=== PATIENT | male | born 1985 | race Asian ===

== ENCOUNTER 2017-05-07 12:37 | Day surgery (SDC) | payer OTHER ==
--- NOTE | 2017-04-29 00:25 | HP ---
CC: Romeo More MD, [facility] * HISTORY AND PHYSICAL: DATE OF ADMISSION: 05/07/17 ATTENDING SURGEON: Alec Reyes MD * (TARIK Márquez, dictating). CHIEF COMPLAINT: Anal fistula. HISTORY OF PRESENT ILLNESS: This is a 31-year-old male, who for the past 3-1/2 years has been experiencing ongoing perianal drainage. He states that he initially had pain in the perianal area with spontaneous drainage at that time. It appeared that things had healed for an initial period of months, but then subsequently he has had ongoing drainage on a pretty much daily basis. He describes intermittent mild discomfort but nothing severe. He has occasional constipation generally related to milk or dairy products. This is sometimes associated with small amounts of bleeding. There is no personal or family history of inflammatory bowel disease. He was seen in the office by Dr. Reyes on 04/17/17, at which time exam showed two openings at the 10 and 2 o'clock positions with the patient in a prone position. Dr. Reyes was unable to completely probe either the fistula openings because of discomfort and there were no obvious openings internally on anoscopy. Dr. Reyes's impression was that of anal fistula and his recommendation was for examination under anesthesia , fistulotomy with possible seton placement. The patient understands the indications for surgery, the risks, benefits, and alternatives. He would like to proceed as scheduled with the examination under anesthesia with fistulotomy and possible seton placement. PAST MEDICAL HISTORY: 1. Bipolar disorder. 2. Anal fistula as noted above. PAST SURGICAL HISTORY: Reduction of a nasal fracture. CURRENT MEDICATIONS: 1. [place]ott carbonate extended release 450 mg 2 tablets q.p.m. 2. Seroquel 300 mg one half tablet q.p.m. DRUG ALLERGIES: None known. FAMILY HISTORY: Negative for anesthesia problems, bleeding or clotting disorders. SOCIAL HISTORY: The patient lives with his parents. He is not currently employed. He is a smoker, one-half pack per day, and we discussed the benefits of smoking cessation. He drinks alcohol rarely and denies other recreational drug use. REVIEW OF SYSTEMS: General: No recent constitutional symptoms or acute illnesses. His weight has been stable. HEENT: No problems reported. Cardiovascular: No chest pain, palpitations or history of heart murmur. Respiratory: No history of asthma, chronic cough or shortness of breath. GI: No upper GI symptoms. : No problems reported. Endocrine: No diabetes or thyroid dysfunction. Neuropsych: He is followed regularly by psychiatrist for management of his bipolar disorder. PHYSICAL EXAMINATION GENERAL: A well-nourished, well-developed male in no acute distress. VITAL SIGNS: Height 5 feet 7 inches, weight 188 pounds, BMI 29.4. Blood pressure 122/80, pulse 72, respirations 16. HEENT: Pupils equal, round, and reactive. EOMs intact. No conjunctival pallor. Oropharynx, teeth in good repair. No intraoral lesions. NECK: No lymphadenopathy, thyromegaly or masses. HEART: Regular rate and rhythm. No murmur noted. LUNGS: Clear to auscultation. No rales or wheezes. ABDOMEN: Soft, nontender to palpation. No palpable masses or organomegaly. GENITALIA AND RECTAL: Not done. See above per Dr. Reyes's exam. BACK: No spinous process or CVA tenderness. EXTREMITIES: No edema. NEUROLOGIC: Grossly intact. SKIN: Warm and dry. No suspicious rashes or lesions noted. IMPRESSION: Anal fistula. PLAN: Examination under anesthesia; fistulotomy with possible seton placement. TARIK MÁRQUEZ [id number]/[facility] #: [id number] MTDD
[~2017-05-07 12:37] MED LIST: Buffered Lidocaine 0.9% SYRIN* 5 ML/SYR SYRINGE INTRADERM ONE; Famotidine IV* 10 MG/ML 2 ML (20 mg) IV ONE
[2017-05-07] MEDS ORDERED: Famotidine IV* 10 MG/ML 2 ML (20 mg) ONE (12:42)
[2017-05-07] MEDS ORDERED: ceFOXitin 2 GM IVPREMIX* 2 GM/50 ML BAG ONE (12:42)
[2017-05-07] MEDS ORDERED: Buffered Lidocaine 0.9% SYRIN* 5 ML/SYR SYRINGE ONE (12:42)
[2017-05-07] MEDS ORDERED: Midazolam* 1 MG/ML 5 ML VIAL (5 MG) ONE (13:54)
[2017-05-07] MEDS ORDERED: Ketorolac INJ* 30 MG/ML 1 ML VIAL ONE (13:54)
[2017-05-07] MEDS ORDERED: Ondansetron INJ* 2 MG/ML VIAL ONE (13:54)
[2017-05-07] MEDS ORDERED: fentaNYL* 50 MCG/ML 2 ML VIAL (100 MCG VIAL) ONE (13:54)
[2017-05-07] MEDS ORDERED: Lidocaine 2% PF * 5 ML VIAL ONE (13:54)
[2017-05-07] MEDS ORDERED: Propofol* 10 MG/ML 20 ML BTL IV PUSH ONE (13:54)
[2017-05-07] MEDS ORDERED: oxyCODONE TAB* 5 MG TAB PO PRN (14:37)
[2017-05-07] MEDS ORDERED: DiMENhydriNATE IV* 50 MG/ML VIAL IV PUSH PRN (14:37)
[2017-05-07] MEDS ORDERED: HYDROmorphone INJ* 1 MG/ML CARPUJECT SYRINGE IV PRN (14:37)
[2017-05-07] MEDS ORDERED: Acetaminophen TAB* 325 MG PO PRN (14:37)
[2017-05-07] MEDS ORDERED: Methylene Blue 0.5 %* 50 MG/10 ML AMP IV ONE (15:26)
[2017-05-07] MEDS ORDERED: Bupivacaine 0.25% SDV* 30 ML ONE (15:26)
[2017-05-07] MEDS ORDERED: Gelfoam 12-7 ADSORBABL SPONGE* 1 EA SPONGE ONE (15:27)
[2017-05-07] MEDS ORDERED: Chloroprocaine 2%* 20 ML VIAL ONE (15:38)
--- NOTE | 2017-05-07 16:40 | SURGPN ---
Brief Operative Note - Surgery Procedures: Procedures Pre-OP Diagnoses: recurrent perianal abscesses, r/o fistula in ano Post-op Diagnosis: anal fistula complex, superficial Procedure: exam under anesthesia, fistulotomy Surgeon: Eric Asst: WILBUR Rose Anethesia: spinal, local Kl[place] EBL: minimal IVF: minimal Specimen: none Drains: none Complications: None
[2017-05-07 17:20] VITALS: BP 120/89
--- NOTE | 2017-06-05 06:11 | OP ---
CC: [facility] OPERATIVE REPORT: DATE OF OPERATION: 05/07/17 DATE OF : 87 SURGEON: Alec Reyes MD BANKRUPTCY ASSISTANT: Milton Cuevas ANESTHESIOLOGIST: Dr. Arana. ANESTHESIA: Spinal anesthesia. PRE-OP DIAGNOSIS: Recurrent perianal abscess, rule out fistula in ano. POST-OP DIAGNOSIS: Anal fistula complex superficial. OPERATIVE PROCEDURE: Exam under anesthesia and fistulotomy. BLOOD LOSS: Minimal. FLUIDS: Minimal crystalloid fluid given. SPECIMEN: None. DRAINS: None. DESCRIPTION OF PROCEDURE: The patient was identified in the preoperative area, case discussed, cons ent was signed, seen by the anesthesiologist, brought to the operating room. A spinal anesthesia wa s delivered. The patient was placed on the operative table in the prone position. He was then jim knife prone with buttock cheeks taped apart. The anus was then prepped with Betadine. The patient was draped and a time-out was performed. Examination of the perianal area revealed previously known openings that were thought to be likely f istulous, the one was at 11 o'clock, the other at 2 o'clock. We dilated the rectum with 3 fingers an d then placed an anal retractor in. Review of the dentate line showed some hyperemia along the post erior aspect, but we could not find a discrete opening. Next, we inserted methylene blue through th e 11 o'clock tract. This promptly exited at the 1 o'clock tract and we still could not appreciate d rainage into the anus. Again with peroxide attempt, we could see bubbling, but we are not too sure. Next, we used a probe, which probed easily from the 11 o'clock tract to the 1 o'clock tract. Afte r this was performed, I did incise over the 11 o'clock tract to get a more of an idea of the inner w orkings of this site. This allowed me to manipulate a probe more easily into the anus and it did co me out at the dentate line at the area of the hyperemic portion. This appeared superficial and I in cised over the probe and extended and then also put the probe from one fistula to the other and also incised over this. This created a sort of elliptical opening. Hemostasis was achieved with electr ocautery, but we did also debride a little bit of the tract away from the dentate line. We irrigate d and then dressed the area. The patient was awoken up and transferred to the PACU in stable condit ion. [id number]/[facility] #: [id number]
== END 2017-05-07 17:39 | disposition home or self-care (01) ==
LOC: OR 12:37
PROVIDERS: ATTEND Surgery
DX: K60.3 Anal fistula (principal); F17.210 Nicotine dependence, cigarettes, uncomplicated; F31.9 Bipolar disorder, unspecified
CPT/HCPCS: A9270-GY; J0694; J1885; J2250; J2400; J2405; J2704; J3010

== ENCOUNTER 2017-12-19 05:02 | Inpatient (IN) | payer OTHER ==
[2017-12-19 05:52] LABS: Urine Appearance Clear; Urine Blood Negative (Negative); Urine Color Yellow; Urine Ketones Negative (Negative); Urine Protein Negative (Negative); Urine Specific Gravity 1.008 (1.010-1.030); Urine Urobilinogen Negative (Negative)
[2017-12-19 05:58] LABS: ABS Basophils 0 10^3/ul (0-0.2); ABS Eosinophils 0.1 10^3/ul (0-0.6); ABS Lymphocytes 0.9 10^3/ul (1.0-4.8); ABS Monocytes 0.4 10^3/ul (0-0.8); ABS Neutrophils 7.1 10^3/ul (1.5-7.7); ABS Nucleated RBC 0 10^3/ul; Eosinophil % 1.3 % (0-6); Hematocrit 46 % (42-52); Hemoglobin 15.4 g/dl (14.0-18.0); Lymphocyte % 10.7 % (25-47); Mean Corpuscular HGB Conc 33 g/dl (31-36); Mean Corpuscular Hemoglobin 28 pg (27-31); Mean Corpuscular Volume 85 fL (80-94); Mean Platelet Volume 7.2 um3 (7.4-10.4); Nucleated Red Blood Cells % 0; Platelet Count 269 10^3/ul (150-450); Red Blood Count 5.42 10^6/ul (4.0-5.4); Red Cell Distribution Width 13 % (10.5-15); White Blood Count 8.6 10^3/ul (3.5-10.8)
[2017-12-19 06:17] LABS: EGFR Non-African American 92.5 (>60)
--- NOTE | 2017-12-19 06:36 | ED ---
Dominik Hamlin Rebecca, scribed for Twyla Donohue MD on 12/19/17 at 0529 . 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 Denies hallucinations. PMHx Bipolar, depression for which he takes Seroquel and lithium. Confirms he is compliant. Has a psychiatrist that he last saw a few months ago. - History Of Current Complaint Chief Complaint: EDMentalHealth Hx Obtained From: Patient, Medical Records Onset/Duration: Resolved Severity Currently: None Character: Manic Associated Signs And Symptoms: Positive: Negative. Negative: Hallucinating Related History: Positive For: Prior Psychiatric Issues - Manic depression - Allergies/Home Medications Allergies/Adverse Reactions: Allergies Allergy/AdvReac Type Severity Reaction Status Date / Time No Known Allergies Allergy Verified 12/19/17 05:09 PMH/Surg Hx/FS Hx/Imm Hx GI History: Comment Only: Other GI Disorders - lactose intolerant Sensory History: Reports: Hx Contacts or Glasses Denies: Hx Hearing Aid Opthamlomology History: Reports: Hx Contacts or Glasses Psychiatric History: Reports: Hx Anxiety - only when feeling depressed, Hx Depression, Hx Bipolar Disorder Denies: Hx Eating Disorder, Hx of Violent Episodes Against Others - Surgical History Surgery Procedure, Year, and Place: 15 years ago [facility] nasal fracture repair Hx Anesthesia Reactions: No Infectious Disease History: No Infectious Disease History: Denies: Traveled Outside the [place] in Last 30 Days - Family History Known Family History: Negative: Diabetes - Social History Alcohol Use: Occasionally Alcohol Amount: 1-2 beer per year Substance Use Type: Reports: None Smoking Status (MU): Heavy Every Day Tobacco Smoker Type: Cigarettes Amount Used/How Often: 10 cigs/day Length of Time of Smoking/Using Tobacco: 9 years Have You Smoked in the Last Year: Yes Review of Systems Negative: Fever Positive: Other - Manic BENZENE WASHER - resolved; NEGATIVE: Hallucinations All Other Systems Reviewed And Are Negative: Yes Physical Exam - Summary Physical Exam Summary: VITAL SIGNS: Reviewed. GENERAL: ~Patient is a well-developed and nourished male who is lying comfortable in the stretcher. Patient is not in any acute respiratory distress. Patient is cooperative but anxious. HEAD AND FACE: No signs of trauma. No ecchymosis, hematomas or skull depressions. No sinus tenderness. EYES: PERRLA, EOMI x 2, No injected conjunctiva, no nystagmus. EARS: Hearing grossly intact. Ear canals and tympanic membranes are within normal limits. MOUTH: Oropharynx within normal limits. NECK: Supple, trachea is midline, no adenopathy, no JVD, no carotid bruit, no c- spine tenderness, neck with full ROM. CHEST: Symmetric, no tenderness at palpation LUNGS: Clear to auscultation bilaterally. No wheezing or crackles. CVS: Tachcyardic, regular rhythm, S1 and S2 present, no murmurs or gallops appreciated. EXTREMITIES: FROM in all major joints, no edema, no cyanosis or clubbing. NEURO: Alert and oriented x 3. No acute neurological deficits. Speech is normal and follows commands. SKIN: Dry and warm Triage Information Reviewed: Yes Vital Signs On Initial Exam: Initial Vitals Temp Pulse Resp BP Pulse Ox 98.0 F 100 16 180/95 100 12/19/17 05:03 12/19/17 05:03 12/19/17 05:03 12/19/17 05:03 12/19/17 05:03 Vital Signs Reviewed: Yes Diagnostics - Vital Signs Vital Signs Temp Pulse Resp BP Pulse Ox 12/19/17 05:03 98.0 F 100 16 180/95 100 - Laboratory Result Diagrams: 12/19/17 05:46 12/19/17 05:46 Lab Statement: Any lab studies that have been ordered have been reviewed, and results considered in the medical decision making process. 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 Denies hallucinations. PMHx Bipolar, depression for which he takes Seroquel and lithium. Confirms he is compliant. Has a psychiatrist that he last saw a few months ago. Medically cleared for MHE at 0633. Pt will be signed out to Dr. Shaw, pending disposition, awaiting MHE completion. - Differential Dx/Clinical Impression Provider Diagnosis: Bipolar 1 disorder Discharge - Sign-Out/Discharge Documenting (check all that apply): Sign-Out Patient Signing out patient TO: Ami Shaw - Pending MHE completion - Discharge Plan Condition: Stable Referrals: No Primary Care Phys,NOPCP [Primary Care Provider] - The documentation as recorded by the Dominik dasilva Rebecca accurately reflects the service I personally performed and the decisions made by , Twyal Donohue MD.
[2017-12-19] MEDS ORDERED: Lithium Carbonate ER* 450 MG TAB.ER PO SCH (08:00)
[2017-12-19] MEDS ORDERED: QUEtiapine XR TAB* 200 MG PO SCH ×2 (08:00→17:00)
[2017-12-19] MEDS ORDERED: Nicotine GUM* 2 MG PO PRN (10:18)
--- NOTE | 2017-12-19 12:16 | ED ---
Wanda Hamlin Julia, scribed for Ami Shaw MD on 12/19/17 at 0743 . Progress - Progress Note Progress Note: This pt is signed out from Dr. Donohue, awaiting mental health evaluation. At 08:05, mental health medicaid eligibility specialist Alfredo Zimmer informed that the patient typically works nights and this is the time he typically takes Seroquel and and [place]. Informed of reason for patient visit, past dx of bipolar I, and likelihood of admission. Medications and doses are validated by the pharmacy picking technician. Medications are ordered. Patient was visited at 08:07. Patient's story is similar to mental health evaluators. He states he was brought to the ED for preaching his church views and attempting to convert co-workers. 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 He reports a dx of bipolar I. He denies feeling manic and denies hearing voices. His only medical complaint was a "white line" in his mouth, asking if it was cancerous. Pt's mouth is evaluated and is not acutely concerning. A dentist visit was recommended to the patient dental complaints. Exam: Pt alert, oriented x 3, calm cooperative, good eye contact. HEENT: normal Neck: supple, no nodes Cor S1S2 Lungs clear Abd benign Extrem: no edema, no calf tenderness Neuro: A O x 3, Moves all extrem well, nonfocal Skin: warm, dry, well perfused. At 09:01, Pt is dancing and singing in room. At 09:48, Pt is coming out of room, needing redirection. Pt called me "your majesty". At 10:50, involuntary papers signed. Course/Dx - Course Course Of Treatment: Informed that Dr. Duran will admit patient at 10:34, DX: Bipolar I, Condition stable. Admit [facility]. - Diagnoses Provider Diagnoses: Bipolar 1 disorder - Provider Notifications Instructed by Provider To: Admit As Inpatient Discharge - Sign-Out/Discharge Documenting (check all that apply): Discharge - admit - Discharge Plan Condition: Stable Disposition: [facility] Referrals: No Primary Care Phys,NOPCP [Primary Care Provider] - - Billing Disposition and Condition Condition: STABLE Disposition: [facility] The documentation as recorded by the Wanda dasilva Julia accurately reflects the service I personally performed and the decisions made by me, Ami Shaw MD.
[2017-12-19] MEDS: Nicotine Inhaler* 10 MG AMP INH PRN ×2 (19:15→19:58)
[2017-12-19] MEDS: Mouth Piece, Nicotine* 1 EACH CARTRIDGE ONE ×2 (19:16→19:58)
[2017-12-19] MEDS: Lithium Carbonate ER* 450 MG TAB.ER PO SCH (19:55)
[2017-12-19] MEDS: diPHENhydraMINE PO* 50 MG PO PRN (19:55)
[2017-12-19] MEDS: LORazepam TAB(*) 1 MG PO PRN (19:55)
[2017-12-19] MEDS: Haloperidol TAB* 5 MG PO PRN (19:56)
[2017-12-19] MEDS: Nicotine Patch Removal NOTE PATCH OFF SCH (22:31)
[2017-12-20] MEDS ORDERED: Mouth Piece, Nicotine* 1 EACH CARTRIDGE ONE (07:24)
[2017-12-20] MEDS: Nicotine Inhaler* 10 MG AMP INH PRN ×4 (07:27→19:32)
[2017-12-20] MEDS: Nicotine PATCH 14 MG/24 HR* PATCH TRANSDERM SCH (07:27)
[2017-12-20] MEDS: Mouth Piece, Nicotine* 1 EACH CARTRIDGE ONE (07:27)
--- NOTE | 2017-12-20 17:15 | HP ---
PSYCHIATRIC HISTORY AND PHYSICAL: DATE OF ADMISSION: 12/19/17 JUSTIFICATION FOR ADMISSION: The patient is in need of 24-hour supervision and care due to manic psychosis and inability to care for himself in a less restrictive setting. CHIEF COMPLAINT: "First there was Edward, next came the New Testament, and now there is me, I am revelations." HISTORY OF PRESENT ILLNESS: The patient is a 32-year-old Nepalese Lebanese male with a history of bipolar disorder, who presents from the [facility] where he was acting loud and intrusive. His employers called the police because he was apparently preaching the Bible vigorously and intrusively during his work shift. The patient insists that he is the son of Barry that he is special. He stated "I told myself I was a genius and they brought me here, I can scan the room in a minute, I have mastered every body part. I believe in a higher power." Apparently, he just started this job at [facility] 2 weeks ago and they placed him on the third shift between 11 p.m. and 7 o'clock a.m. This means that he has had to shift his sleep schedule from nights to mornings. Apparently, this is the only known stressor given the fact that the patient has been adherent with medications and cannot identify any other new stressors in his life. His lithium level was therapeutic at 0.84. Symptomatically, he shows multiple signs and symptoms of bipolar bertha including distractibility, indiscretion, grandiosity, flight of ideas, increased goal- directed activities, decreased sleep, and intense hyperverbal speech. When I met with him, he tells me that he is not God himself but that he is the son of Barry and that it is his intention to leave this hospital and start a band that will travel throughout the country, playing music for people and healing their spirits. PSYCHIATRIC HISTORY: As follows: The patient has had at least 4 previous psychiatric admissions here at [facility], the last being in March of 2016 under the service of psychiatrist, Dr. Bharathi Munoz. In the outpatient setting, he sees Dr. Jennifer Arenas at the [facility] and has been stable in the past on lithium and Seroquel. He denies any history of abuse, but does indicate that he was bullied severely as a child because he was an immigrant and went to special ed classes. SUBSTANCE ABUSE HISTORY: He admits to occasional social alcohol, but he denies illicit substance abuse or tobacco usage. PAST MEDICAL HISTORY: Noncontributory. FAMILY HISTORY: Significant for a sister with bipolar disorder. SOCIAL HISTORY: The patient resides with his [place]e Lebanese immigrant parents. He graduated from a local high school, and for the past 2 weeks, has worked at [employer]. He is not in any current relationship. 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 He identifies no current legal issues. REVIEW OF SYSTEMS: The patient denies headache or double vision. He denies sore throat, cough, chest pain, difficulty breathing. He denies abdominal pain , nausea, vomiting, diarrhea, or constipation. He denies difficulty ambulating , enlarged lymph nodes, rashes, fevers, or changes in weight. PHYSICAL EXAMINATION VITAL SIGNS: Blood pressure 118/78, heart rate 90, respiratory rate 18, temperature 97.3, oxygen saturations are 100% on room air. HEENT: Head is normocephalic, atraumatic. NECK: Supple. CHEST: Clear to auscultation bilaterally. CARDIAC: Reveals normal heart sounds. ABDOMEN: Soft, nontender. MUSCULOSKELETAL: Reveals no sign of edema. NEUROLOGICAL: He is grossly intact with no focal deficits. SKIN: Warm and dry. MENTAL STATUS EXAMINATION: The patient is a young male, wearing blue scrubs, who is clean, well groomed. He has eye glasses. He is hyperkinetic. His rate of speech is elevated and he is pressured. Mood is manic with an expansive to labile affect. Thought process reveals elevated thought rate and some flight of ideas. Thought content is significant for grandiosity and hyperreligious thinking. He denies suicidal or homicidal ideations. He denies auditory or visual hallucinations. Insight and judgment are poor given his delusional beliefs. Cognitively, he is awake and alert with what would appear to be an average intellect. LABORATORY DATA: His complete blood count is within normal limits as is his complete metabolic panel. His metabolic studies revealed a hemoglobin A1c of 5.0, triglycerides 115, cholesterol 164, LDL cholesterol 96, HDL cholesterol 44.6. Urinalysis is within normal limits. Urine drug screen is negative for all substances tested. [place] level was therapeutic at 0.82. DIAGNOSES: As follows: Carter I: Bipolar disorder, type 2, manic severe with psychotic features. Carter II: Deferred. Carter III: None. Carter IV: Severe occupational stressors. Carter V : At this time is 31. IMPRESSION: The patient is a 32-year-old Nepalese Lebanese male with a history of bipolar disorder, who arrives via the police from his place of work, which is [facility], where he had been agitated, hyperverbal, hyperreligious, and preaching to his coworkers. Even though he has been adherent with medications, it would appear that his shift to the late night work time and the subsequent change in his sleep schedule has resulted in a manic episode. We will be switching him back to the regular sleep time and likely continue him on his current medications. PLAN: The patient is admitted to the adult behavioral health unit where he is placed on q.15-minute checks for his own safety. We will resume medication therapy with lithium 900 mg p.o. q.h.s., Seroquel 400 mg p.o. q.h.s. We will reach out to his family as well as Dr. Arenas at [facility] for further collateral information. While he is here, he is certainly encouraged to avail himself of all milieu activities including individual and group psychotherapies. Once ready for discharge, we will likely be referring him back to the [facility]. [id number]/[id number] #: [id number] EILEEN
[2017-12-20] MEDS: Nicotine Patch Removal NOTE PATCH OFF SCH (20:39)
[2017-12-20] MEDS: QUEtiapine XR TAB* 200 MG PO SCH (20:40)
[2017-12-20] MEDS: Lithium Carbonate ER* 450 MG TAB.ER PO SCH (20:40)
[2017-12-20] MEDS: diPHENhydraMINE PO* 50 MG PO PRN (22:47)
[2017-12-20] MEDS: Haloperidol TAB* 5 MG PO PRN (22:47)
[2017-12-20] MEDS: LORazepam TAB(*) 1 MG PO PRN (22:47)
[2017-12-21] MEDS: Nicotine PATCH 14 MG/24 HR* PATCH TRANSDERM SCH (09:16)
[2017-12-21] MEDS: Nicotine Inhaler* 10 MG AMP INH PRN ×3 (09:24→18:51)
[2017-12-21] MEDS: QUEtiapine XR TAB* 200 MG PO SCH (20:20)
[2017-12-21] MEDS: Lithium Carbonate ER* 450 MG TAB.ER PO SCH (20:20)
[2017-12-21] MEDS: Nicotine Patch Removal NOTE PATCH OFF SCH (20:21)
[2017-12-21] MEDS: diPHENhydraMINE PO* 50 MG PO PRN (21:58)
[2017-12-21] MEDS: LORazepam TAB(*) 1 MG PO PRN (21:58)
[2017-12-21] MEDS: Haloperidol TAB* 5 MG PO PRN (21:59)
[2017-12-22] MEDS: Nicotine PATCH 14 MG/24 HR* PATCH TRANSDERM SCH (08:26)
[2017-12-22] MEDS: Nicotine Inhaler* 10 MG AMP INH PRN ×3 (08:53→18:24)
--- NOTE | 2017-12-22 16:11 | PN ---
Subjective - Subjective Date of Service: 12/22/17 Service Type: 72013 Hosp care 25 min moderate complexity Subjective: Patient admitted over the weekend and assigned to engineering technical writer this morning. Patient met with engineering technical writer and social media analyst, Dinorah Araiza. 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 He endorses irritation that his paycheck was "measly." He states he wanted to "exalt myself " and was guarded when asked what that means to him. 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 Patient is grandiose and states that he wants to become an electrical prospector, a musician and famous, as well as become a preacher and build churches. He states he is taking medications consistently and denies side effects. He denies substance use other than cigarettes. Patient later requested to be able to call [employer] "before they fire me" and engineering technical writer encouraged him to wait until he is not experiencing bertha. Patient denies he is manic. Objective - Appearance Appearance: Well Developed/Nourished Dysmorphic Features: No Hygiene: Normal Grooming: Well Kept - Behavior Psychomotor Activities: Normal Exhibits Abnormal Movement: No - Attitude and Relatedness Attitude and Relatedness: Psychotically Related Eye Contact: Good - Speech Quality: Pressured Latencies: Normal Quantity: Copious - Mood Patient's Decription of Mood: "I'm not manic" - Affect Observed Affect: Expansive Affect Consistent with: Euphoria - Thought Process Patient's Thought Process: Filght of Ideas, Over Inclusive Thought Content: Yes Paranoid Ideation, No Passive Wish, No Suicidal Planning, No Homicidal Ideation - Sensorium Experiencing Hallucinations: No, Sensorium is Clear Type of Hallucinations: Visual: No, Auditory: No, Command: No - Level of Consciousness Level of Consciousness: Alert Orientation: Yes Intact, Yes Orientated to Time, Yes Orientated to Place, Yes Orientated to Person - Impulse Control Impulse Control: Tenuous - Insight and Judgement Insight and Judgement: Poor - Group Participation Particating in Group Activities: Yes - Medication Management Medication Management Adherence: Yes Assessment - Assessment Merits Inpatient Hospitalization: For Immediate Safety, For Stabilization, Consolidate Improvements, Pending Safe DC Plan Inpatient DSM-V Dx: F31.13 Clinical Impression: 32yo male with known history of bipolar d/o. 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 Patient demonstrates poor insight and merits hospitalization for continued stabilization. Plan - Plan Treatment Plan: Name: MANOJ THOMPSON Birthdate: 1985 [id number] continue acute intensive psychiatric treatment. promote sleep hygiene. continue outpatient medications. discharge planning to include family members and outpatient providers. Continued Medication Management: Continue Outpt Medication Medications: Current Medications Diphenhydramine HCl (Benadryl Po*) 50 mg PO Q6H PRN PRN Reason: AGITATION Last Admin: 12/20/17 22:47 Dose: 50 mg Diphenhydramine HCl (Benadryl Po*) 50 mg PO BEDTIME PRN PRN Reason: INSOMNIA Last Admin: 12/21/17 21:58 Dose: 50 mg Haloperidol (Haldol Tab*) 5 mg PO Q6H PRN PRN Reason: AGITATION Last Admin: 12/21/17 21:59 Dose: 5 mg [place] Carbonate ([place] Carbonate Er Tab*) 900 mg PO 2100 NATAANEL Last Admin: 12/21/17 20:20 Dose: 900 mg Lorazepam (Ativan Tab(*)) 2 mg PO Q6H PRN PRN Reason: AGITATION Last Admin: 12/21/17 21:58 Dose: 2 mg Nicotine (Nicotine Inhaler*) 10 mg INH Q2H PRN PRN Reason: CRAVING Last Admin: 12/22/17 14:04 Dose: 10 mg Nicotine (Nicotine Patch 14 Mg/24 Hr*) 1 patch TRANSDERM DAILY@0800 N[place]EL Last Admin: 12/22/17 08:26 Dose: Not Given Nicotine Polacrilex (Nicotine Gum*) 2 mg PO Q2H PRN PRN Reason: CRAVING Pharmacy Profile Note (Nicotine Patch Removal Note*) 1 note PATCH OFF 2100 NATANAEL Last Admin: 12/21/17 20:21 Dose: Not Given Quetiapine Fumarate (Seroquel Xr Tab*) 400 mg PO BEDTIME [place] Last Admin: 12/21/17 20:20 Dose: 400 mg - Discharge Plan Discharge Plan: Outpatient Follow Up Outpatient Program: [facility]
[2017-12-22] MEDS: Lithium Carbonate ER* 450 MG TAB.ER PO SCH (20:26)
[2017-12-22] MEDS: QUEtiapine XR TAB* 200 MG PO SCH (20:26)
[2017-12-22] MEDS: Nicotine Patch Removal NOTE PATCH OFF SCH (22:06)
[2017-12-23] MEDS: LORazepam TAB(*) 1 MG PO PRN ×2 (02:31→20:48)
[2017-12-23] MEDS: Haloperidol TAB* 5 MG PO PRN (02:32)
[2017-12-23] MEDS: diPHENhydraMINE PO* 50 MG PO PRN ×2 (02:53→20:48)
[2017-12-23] MEDS: Nicotine Inhaler* 10 MG AMP INH PRN ×4 (07:23→20:30)
[2017-12-23] MEDS: Nicotine PATCH 14 MG/24 HR* PATCH TRANSDERM SCH (08:43)
--- NOTE | 2017-12-23 15:41 | PN ---
Subjective - Subjective Service Type: 10200 Hosp care 15 min low complexity Subjective: Patient requests to be discharged citing that he is ready. He continues to exhibit poor insight. He states he has "ISSAC" and can go to [employer] and know how many people are there. He states his mother received mail from [employer] notifying him of termination. He denies disappointment and states he can work at [employer] or [employer]. He states "They need people like me. My resume is solid. I have a degree in [employer] arts. 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 Objective - Appearance Appearance: Well Developed/Nourished Dysmorphic Features: No Hygiene: Normal Grooming: Well Kept - Behavior Psychomotor Activities: Normal Exhibits Abnormal Movement: No - Attitude and Relatedness Attitude and Relatedness: Superficially Cooperative Eye Contact: Good - Speech Quality: Pressured Latencies: Normal Quantity: Copious - Mood Patient's Decription of Mood: "Good" - Affect Observed Affect: Expansive Affect Consistent with: Euphoria - Thought Process Patient's Thought Process: Loose Associations, Over Inclusive Thought Content: No Passive Wish, No Suicidal Planning, No Homicidal Ideation, No Paranoid Ideation - Sensorium Experiencing Hallucinations: No, Sensorium is Clear Type of Hallucinations: Visual: No, Auditory: No, Command: No - Level of Consciousness Level of Consciousness: Alert Orientation: Yes Intact, Yes Orientated to Time, Yes Orientated to Place, Yes Orientated to Person - Impulse Control Impulse Control: Tenuous - Insight and Judgement Insight and Judgement: Poor - Group Participation Particating in Group Activities: Yes - Medication Management Medication Management Adherence: Yes Assessment - Assessment Merits Inpatient Hospitalization: For Immediate Safety, For Stabilization, Consolidate Improvements Inpatient DSM-V Dx: F31.13 Clinical Impression: 32yo male with known history of bipolar d/o. 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 Patient demonstrates poor insight and merits hospitalization for continued stabilization. Plan - Plan Treatment Plan: Name: MANOJ THOMPSON Birthdate: 1985 [id number] continue acute intensive psychiatric treatment. promote sleep hygiene. continue outpatient medications. discharge planning to include family members and outpatient providers. Continued Medication Management: Continue Outpt Medication Medications: Current Medications Diphenhydramine HCl (Benadryl Po*) 50 mg PO Q6H PRN PRN Reason: AGITATION Last Admin: 12/23/17 02:53 Dose: 50 mg Diphenhydramine HCl (Benadryl Po*) 50 mg PO BEDTIME PRN PRN Reason: INSOMNIA Last Admin: 12/21/17 21:58 Dose: 50 mg Haloperidol (Haldol Tab*) 5 mg PO Q6H PRN PRN Reason: AGITATION Last Admin: 12/23/17 02:32 Dose: 5 mg [place] Carbonate ([place] Carbonate Er Tab*) 900 mg PO 2100 NATANAEL Last Admin: 12/22/17 20:26 Dose: 900 mg Lorazepam (Ativan Tab(*)) 2 mg PO Q6H PRN PRN Reason: AGITATION Last Admin: 12/23/17 02:31 Dose: 2 mg Nicotine (Nicotine Inhaler*) 10 mg INH Q2H PRN PRN Reason: CRAVING Last Admin: 12/23/17 13:07 Dose: 10 mg Nicotine (Nicotine Patch 14 Mg/24 Hr*) 1 patch TRANSDERM DAILY@0800 [facility] Last Admin: 12/23/17 08:43 Dose: Not Given Nicotine Polacrilex (Nicotine Gum*) 2 mg PO Q2H PRN PRN Reason: CRAVING Pharmacy Profile Note (Nicotine Patch Removal Note*) 1 note PATCH OFF 2100 NATANAEL Last Admin: 12/22/17 22:06 Dose: Not Given Quetiapine Fumarate (Seroquel Xr Tab*) 400 mg PO BEDTIME [facility] Last Admin: 12/22/17 20:26 Dose: 400 mg - Discharge Plan Discharge Plan: Outpatient Follow Up Outpatient Program: [facility]
[2017-12-23] MEDS: QUEtiapine XR TAB* 200 MG PO SCH (20:28)
[2017-12-23] MEDS: Lithium Carbonate ER* 450 MG TAB.ER PO SCH (20:28)
[2017-12-23] MEDS: Nicotine Patch Removal NOTE PATCH OFF SCH (20:29)
[2017-12-24] MEDS: Nicotine PATCH 14 MG/24 HR* PATCH TRANSDERM SCH (08:18)
[2017-12-24] MEDS: Nicotine Inhaler* 10 MG AMP INH PRN ×4 (08:49→19:05)
--- NOTE | 2017-12-24 15:32 | PN ---
Subjective - Subjective Service Type: 08477 Hosp care 15 min low complexity Subjective: Patient is calm and in behavioral control. He continues to exhibit grandiosity and is religiously preoccupied. He is adherent to medication and unit routines. Patient agrees to involve parents in discharge planning. He states he is primarily concerned with his sister's needs for mental health care. Objective - Appearance Appearance: Well Developed/Nourished Dysmorphic Features: No Hygiene: Normal Grooming: Well Kept - Behavior Psychomotor Activities: Normal Exhibits Abnormal Movement: No - Attitude and Relatedness Attitude and Relatedness: Superficially Cooperative Eye Contact: Good - Speech Quality: Unpressured Latencies: Normal Quantity: Copious - Mood Patient's Decription of Mood: "Great" - Affect Observed Affect: Expansive Affect Consistent with: Euphoria - Thought Process Patient's Thought Process: Loose Associations Thought Content: No Passive Wish, No Suicidal Planning, No Homicidal Ideation, No Paranoid Ideation - Sensorium Experiencing Hallucinations: No, Sensorium is Clear Type of Hallucinations: Visual: No, Auditory: No, Command: No - Level of Consciousness Level of Consciousness: Alert Orientation: Yes Intact, Yes Orientated to Time, Yes Orientated to Place, Yes Orientated to Person - Impulse Control Impulse Control: Tenuous - Insight and Judgement Insight and Judgement: Poor - Group Participation Particating in Group Activities: Yes - Medication Management Medication Management Adherence: Yes Assessment - Assessment Merits Inpatient Hospitalization: For Immediate Safety, For Stabilization, Consolidate Improvements Inpatient DSM-V Dx: F31.13 Clinical Impression: 32yo male with known history of bipolar d/o. 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 Patient demonstrates poor insight and merits hospitalization for continued stabilization. Plan - Plan Treatment Plan: Name: MANOJ THOMPSON Birthdate: 1985 [id number] continue acute intensive psychiatric treatment. promote sleep hygiene. increase quetiapine XR to 500mg qhs. discharge planning to include family members and outpatient providers. Continued Medication Management: Continue Outpt Medication Medications: Current Medications Diphenhydramine HCl (Benadryl Po*) 50 mg PO Q6H PRN PRN Reason: AGITATION Last Admin: 12/23/17 02:53 Dose: 50 mg Diphenhydramine HCl (Benadryl Po*) 50 mg PO BEDTIME PRN PRN Reason: INSOMNIA Last Admin: 12/23/17 20:48 Dose: 50 mg Haloperidol (Haldol Tab*) 5 mg PO Q6H PRN PRN Reason: AGITATION Last Admin: 12/23/17 02:32 Dose: 5 mg [place] Carbonate ([place] Carbonate Er Tab*) 900 mg PO 2100 NATANAEL Last Admin: 12/23/17 20:28 Dose: 900 mg Lorazepam (Ativan Tab(*)) 2 mg PO Q6H PRN PRN Reason: AGITATION Last Admin: 12/23/17 20:48 Dose: 2 mg Nicotine (Nicotine Inhaler*) 10 mg INH Q2H PRN PRN Reason: CRAVING Last Admin: 12/24/17 12:34 Dose: 10 mg Nicotine (Nicotine Patch 14 Mg/24 Hr*) 1 patch TRANSDERM DAILY@0800 NATA[place]EL Last Admin: 12/24/17 08:18 Dose: Not Given Nicotine Polacrilex (Nicotine Gum*) 2 mg PO Q2H PRN PRN Reason: CRAVING Pharmacy Profile Note (Nicotine Patch Removal Note*) 1 note PATCH OFF 2099 NATANAEL Last Admin: 12/23/17 20:29 Dose: Not Given - Discharge Plan Discharge Plan: Outpatient Follow Up Outpatient Program: [facility]
[2017-12-24] MEDS: Nicotine Patch Removal NOTE PATCH OFF SCH (20:19)
[2017-12-24] MEDS: QUEtiapine XR TAB* 200 MG PO SCH (20:47)
[2017-12-24] MEDS: QUEtiapine XR TAB* 50 MG PO SCH (20:47)
[2017-12-24] MEDS: Lithium Carbonate ER* 450 MG TAB.ER PO SCH (20:48)
[2017-12-24] MEDS: LORazepam TAB(*) 1 MG PO PRN (21:38)
[2017-12-24] MEDS: Haloperidol TAB* 5 MG PO PRN (21:39)
[2017-12-24] MEDS: diPHENhydraMINE PO* 50 MG PO PRN (21:39)
[2017-12-25] MEDS: Nicotine Inhaler* 10 MG AMP INH PRN ×5 (08:36→20:51)
[2017-12-25] MEDS: Nicotine PATCH 14 MG/24 HR* PATCH TRANSDERM SCH (08:47)
[2017-12-25] MEDS ORDERED: Mouth Piece, Nicotine* 1 EACH CARTRIDGE ONE (10:34)
--- NOTE | 2017-12-25 12:29 | PN ---
Subjective - Subjective Service Type: 75272 Hosp care 15 min low complexity Subjective: Patient is euthymic with bright affect. He states he is "a positive influence " on the unit and is respectful of others. He denies untoward effects from increase in quetiapine dose. Objective - Appearance Appearance: Well Developed/Nourished Dysmorphic Features: No Hygiene: Normal Grooming: Well Kept - Behavior Psychomotor Activities: Normal Exhibits Abnormal Movement: No - Attitude and Relatedness Attitude and Relatedness: Cooperative Eye Contact: Good - Speech Quality: Unpressured Latencies: Normal Quantity: Copious - Mood Patient's Decription of Mood: "Good" - Affect Observed Affect: Expansive - Thought Process Patient's Thought Process: Loose Associations, Circumstantial Thought Content: No Passive Wish, No Suicidal Planning, No Homicidal Ideation, No Paranoid Ideation - Sensorium Experiencing Hallucinations: No, Sensorium is Clear Type of Hallucinations: Visual: No, Auditory: No, Command: No - Level of Consciousness Level of Consciousness: Alert Orientation: Yes Intact, Yes Orientated to Time, Yes Orientated to Place, Yes Orientated to Person - Impulse Control Impulse Control: Tenuous - Insight and Judgement Insight and Judgement: Poor - Group Participation Particating in Group Activities: Yes - Medication Management Medication Management Adherence: Yes Assessment - Assessment Merits Inpatient Hospitalization: For Immediate Safety, For Stabilization, Consolidate Improvements, Pending Safe DC Plan Inpatient DSM-V Dx: F31.13 Clinical Impression: 32yo male with known history of bipolar d/o. 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 Patient demonstrates poor insight and merits hospitalization for continued stabilization. Plan - Plan Treatment Plan: Name: MANOJ THOMPSON Birthdate: 1985 [id number] continue acute intensive psychiatric treatment. continue current medications. continue sleep hygiene. discharge planning to include family members and outpatient providers. Continued Medication Management: Continue Outpt Medication Medications: Current Medications Diphenhydramine HCl (Benadryl Po*) 50 mg PO Q6H PRN PRN Reason: AGITATION Last Admin: 12/24/17 21:39 Dose: 50 mg Diphenhydramine HCl (Benadryl Po*) 50 mg PO BEDTIME PRN PRN Reason: INSOMNIA Last Admin: 12/23/17 20:48 Dose: 50 mg Haloperidol (Haldol Tab*) 5 mg PO Q6H PRN PRN Reason: AGITATION Last Admin: 12/24/17 21:39 Dose: 5 mg [place] Carbonate ([place] Carbonate Er Tab*) 900 mg PO 2100 NATANAEL Last Admin: 12/24/17 20:48 Dose: 900 mg Lorazepam (Ativan Tab(*)) 2 mg PO Q6H PRN PRN Reason: AGITATION Last Admin: 12/24/17 21:38 Dose: 2 mg Nicotine (Nicotine Inhaler*) 10 mg INH Q2H PRN PRN Reason: CRAVING Last Admin: 12/25/17 10:36 Dose: 10 mg Nicotine (Nicotine Patch 14 Mg/24 Hr*) 1 patch TRANSDERM DAILY@0800 [place]EL Last Admin: 12/25/17 08:47 Dose: Not Given Nicotine Polacrilex (Nicotine Gum*) 2 mg PO Q2H PRN PRN Reason: CRAVING Pharmacy Profile Note (Nicotine Patch Removal Note*) 1 note PATCH OFF 2099 NATA[place]EL Last Admin: 12/24/17 20:19 Dose: Not Given Quetiapine Fumarate (Seroquel Xr Tab*) 400 mg PO BEDTIME [facility] Last Admin: 12/24/17 20:47 Dose: 400 mg Quetiapine Fumarate (Seroquel Xr Tab*) 100 mg PO BEDTIME [facility] Last Admin: 12/24/17 20:47 Dose: 100 mg - Discharge Plan Discharge Plan: Outpatient Follow Up Outpatient Program: [facility]
--- NOTE | 2017-12-25 16:56 | PN ---
[facility]: Group Therapy Note - Service Type Service Type: 89021 Group Psychotherapy - Medication Education Group: Patient joined group and was intermittently in room. Patient asked questions that were not particularly on topic.
[2017-12-25] MEDS: QUEtiapine XR TAB* 50 MG PO SCH (20:49)
[2017-12-25] MEDS: QUEtiapine XR TAB* 200 MG PO SCH (20:49)
[2017-12-25] MEDS: Lithium Carbonate ER* 450 MG TAB.ER PO SCH (20:49)
[2017-12-25] MEDS: LORazepam TAB(*) 1 MG PO PRN (21:51)
[2017-12-25] MEDS: Haloperidol TAB* 5 MG PO PRN (21:51)
[2017-12-25] MEDS: Nicotine Patch Removal NOTE PATCH OFF SCH (22:32)
[2017-12-26] MEDS: Nicotine Inhaler* 10 MG AMP INH PRN ×6 (06:46→18:42)
[2017-12-26] MEDS: Nicotine PATCH 14 MG/24 HR* PATCH TRANSDERM SCH (08:18)
--- NOTE | 2017-12-26 13:19 | PN ---
Subjective - Subjective Date of Service: 12/26/17 Service Type: 62376 Hosp care 15 min low complexity Subjective: Patient continues to endorse mild euphoria. His speech is loud but otherwise normal rhythm. He is proud of himself for being kind to his peers. Patient is notified of family meeting scheduled for friday. Objective - Appearance Appearance: Well Developed/Nourished Dysmorphic Features: No Hygiene: Normal Grooming: Well Kept - Behavior Psychomotor Activities: Normal Exhibits Abnormal Movement: No - Attitude and Relatedness Attitude and Relatedness: Cooperative Eye Contact: Good - Speech Latencies: Normal Quantity: Copious - Mood Patient's Decription of Mood: "Great" - Affect Observed Affect: Expansive Affect Consistent with: Euphoria - Thought Process Patient's Thought Process: Coherent, Goal Directed, Circumstantial Thought Content: No Passive Wish, No Suicidal Planning, No Homicidal Ideation, No Paranoid Ideation - Sensorium Experiencing Hallucinations: No, Sensorium is Clear Type of Hallucinations: Visual: No, Auditory: No, Command: No - Level of Consciousness Level of Consciousness: Alert Orientation: Yes Intact, Yes Orientated to Time, Yes Orientated to Place, Yes Orientated to Person - Impulse Control Impulse Control: Tenuous - Insight and Judgement Insight and Judgement: Fair - Group Participation Particating in Group Activities: Yes - Medication Management Medication Management Adherence: Yes Assessment - Assessment Merits Inpatient Hospitalization: For Immediate Safety, For Stabilization Inpatient DSM-V Dx: F31.13 Clinical Impression: 32yo male with known history of bipolar d/o. 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 Patient demonstrates poor insight and merits hospitalization for continued stabilization. Plan - Plan Treatment Plan: Name: MANOJ THOMPSON Birthdate: 1985 [id number] continue acute intensive psychiatric treatment. continue current medications. continue sleep hygiene. discharge planning to include family members and outpatient providers. Continued Medication Management: Continue Outpt Medication Medications: Current Medications Diphenhydramine HCl (Benadryl Po*) 50 mg PO Q6H PRN PRN Reason: AGITATION Last Admin: 12/24/17 21:39 Dose: 50 mg Diphenhydramine HCl (Benadryl Po*) 50 mg PO BEDTIME PRN PRN Reason: INSOMNIA Last Admin: 12/23/17 20:48 Dose: 50 mg Haloperidol (Haldol Tab*) 5 mg PO Q6H PRN PRN Reason: AGITATION Last Admin: 12/25/17 21:51 Dose: 5 mg [place] Carbonate ([place] Carbonate Er Tab*) 900 mg PO 2100 NATANAEL Last Admin: 12/25/17 20:49 Dose: 900 mg Lorazepam (Ativan Tab(*)) 2 mg PO Q6H PRN PRN Reason: AGITATION Last Admin: 12/25/17 21:51 Dose: 2 mg Nicotine (Nicotine Inhaler*) 10 mg INH Q2H PRN PRN Reason: CRAVING Last Admin: 12/26/17 10:05 Dose: 10 mg Nicotine (Nicotine Patch 14 Mg/24 Hr*) 1 patch TRANSDERM DAILY@0800 [facility] Last Admin: 12/26/17 08:18 Dose: Not Given Nicotine Polacrilex (Nicotine Gum*) 2 mg PO Q2H PRN PRN Reason: CRAVING Last Admin: 12/25/17 15:55 Dose: 2 mg Pharmacy Profile Note (Nicotine Patch Removal Note*) 1 note PATCH OFF 2099 NATANAEL Last Admin: 12/25/17 22:32 Dose: Not Given Quetiapine Fumarate (Seroquel Xr Tab*) 400 mg PO BEDTIME [facility] Last Admin: 12/25/17 20:49 Dose: 400 mg Quetiapine Fumarate (Seroquel Xr Tab*) 100 mg PO BEDTIME [facility] Last Admin: 12/25/17 20:49 Dose: 100 mg - Discharge Plan Discharge Plan: Outpatient Follow Up Outpatient Program: [facility]
[2017-12-26] MEDS: Lithium Carbonate ER* 450 MG TAB.ER PO SCH (20:31)
[2017-12-26] MEDS: QUEtiapine XR TAB* 200 MG PO SCH (20:32)
[2017-12-26] MEDS: QUEtiapine XR TAB* 50 MG PO SCH (20:33)
[2017-12-26] MEDS: Nicotine Patch Removal NOTE PATCH OFF SCH (20:35)
[2017-12-26] MEDS: diPHENhydraMINE PO* 50 MG PO PRN (21:52)
[2017-12-27] MEDS: Nicotine Inhaler* 10 MG AMP INH PRN ×4 (06:18→19:16)
[2017-12-27] MEDS: Nicotine PATCH 14 MG/24 HR* PATCH TRANSDERM SCH (07:32)
[2017-12-27] MEDS: Haloperidol TAB* 5 MG PO PRN (20:51)
[2017-12-27] MEDS: LORazepam TAB(*) 1 MG PO PRN (20:51)
[2017-12-27] MEDS: diPHENhydraMINE PO* 50 MG PO PRN (20:52)
[2017-12-27] MEDS: QUEtiapine XR TAB* 200 MG PO SCH (20:52)
[2017-12-27] MEDS: QUEtiapine XR TAB* 50 MG PO SCH (20:52)
[2017-12-27] MEDS: Lithium Carbonate ER* 450 MG TAB.ER PO SCH (20:52)
[2017-12-27] MEDS: Nicotine Patch Removal NOTE PATCH OFF SCH (21:12)
[2017-12-28] MEDS: Nicotine Inhaler* 10 MG AMP INH PRN ×6 (07:30→20:29)
[2017-12-28] MEDS: Nicotine PATCH 14 MG/24 HR* PATCH TRANSDERM SCH (09:22)
[2017-12-28] MEDS: QUEtiapine XR TAB* 200 MG PO SCH (20:29)
[2017-12-28] MEDS: QUEtiapine XR TAB* 50 MG PO SCH (20:29)
[2017-12-28] MEDS: Lithium Carbonate ER* 450 MG TAB.ER PO SCH (20:30)
[2017-12-28] MEDS: Nicotine Patch Removal NOTE PATCH OFF SCH (21:04)
[2017-12-28] MEDS: diPHENhydraMINE PO* 50 MG PO PRN (22:18)
[2017-12-29] MEDS: Nicotine PATCH 14 MG/24 HR* PATCH TRANSDERM SCH (08:03)
[2017-12-29 08:07] VITALS: BP 118/83
[2017-12-29] MEDS: Nicotine Inhaler* 10 MG AMP INH PRN (08:21)
--- NOTE | 2017-12-29 17:56 | DS ---
CC: Dr. Jennifer Arenas at [facility] * DISCHARGE SUMMARY: DATE OF ADMISSION: 12/19/17 DATE OF DISCHARGE: 12/29/17 SUPERVISING PSYCHIATRIST: Dr. Harjinder Baires * (dictated by Beata Ridley NP) DISCHARGE DIAGNOSIS: Bipolar 2 disorder, most recent episode manic, severe with psychotic features. CONDITION AT TIME OF DISCHARGE: Improved. The patient was calm and in behavioral control. He was able to participate in a family meeting with this provider, rn social services Dinorah Araiza and with his parents. 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 The patient was also given suggestions to participate in the [facility] program at [facility]. He states he will continue with the psychiatrist, Dr. Sonal Arenas. He denies need for individual therapy. We discussed volunteering options that may benefit the patient in increased socialization and routine in structure. He denies suicidal ideation, HI, or . Again, he is calm and in behavioral controlled. There is no evidence of perceptual disturbances. His parents are present and agree with the discharge plan. MENTAL STATUS EXAM: The patient is a well-groomed. He is a [place] male who is dressed in his own clothing. Alert, oriented, and cooperative and answers questions fully. He is not intrusive or elated in comparison to beginning of his hospitalization. He is wearing dark rimed eye glasses and there is no psychomotor abnormal activity present. Eye contact is good. His speech is soft and articulate. His mood is euthymic with congruent affect. Thought process is logical, goal directed. Thought content is negative for grandiosity, anabaptism preoccupation, and otherwise within normal limits. Denies AH or VH. Insight and judgment are good at this time. His fund of knowledge is adequate. DISCHARGE INSTRUCTIONS: Instructions given to the patient and his parents: A. Medications: The following were electronically prescribed to Racheal Goodwin on [facility] per the patient request. 1. [place] ER 900 mg p.o. q.h.s. 2. Quetiapine XR 500 mg q.h.s. This copy writer gave a 2 week supply as he will be seeing his psychiatrist later this week. B. Diet is regular. C. Activity is ambulation as tolerated. D. Tobacco cessation assistance declined by the patient and he was given information for the [facility] smokers quit line. There are no studies pending at the time of discharge. His lithium level on admission was 0.82, did not change lithium dosages, therefore, I did not repeat this level due to antipsychotic treatment, we updated hemoglobin A1c which is normal at 5.0 and his panel was unremarkable as well. E. Followup care: The patient will follow up with [facility] and has no appointment with Dr. Jennifer Arenas on January 01. F. Substance abuse followup is not applicable. HOSPITAL COURSE: Part A: Reason for admission: The patient presented to the emergency department from [facility]. 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 He was grandiose and delusional, made statements that he was the son of Barry and presented in a classic manic state. Part B: Psychiatric treatment rendered: See above for major blood test. He was admitted to the adult behavioral services unit on status and his code status was full. He was placed on 50 minute checks for safety. Medication regimen was continued. [place] ER 900 mg p.o. q.h.s., quetiapine XR 400 mg q.h.s. Staff was encouraged to promote sleep hygiene. We increased his quetiapine to 500 mg otherwise did not make any other medication changes with structure and routine. The patient was able to stabilize. He was increasingly euthymic. He was not aggressive or violent. He was intrusive and hyperreligious during his manic state. The patient was eventually allowed to decrease a observation and allowed to go and staff pass. He was calm and in behavioral control. The patient was cooperative with treatment and easy to establish report. As stated above, the patient participated in family meeting and seemingly able to understand discharge instructions and therapeutic recommendations. He is discharged to his parents with nursing staff. BEATA RIDLEY NP [id number]/[facility] #: [id number] EILEEN
== END 2017-12-29 11:20 | disposition home or self-care (01) | DRG 753 ==
LOC: ED 05:02 → BSU 10:18
PROVIDERS: ADMIT Registered Nurse Psychiatric/Mental Health; ATTEND Psychiatry & Neurology Psychiatry
PROC: GZHZZZZ Group Psychotherapy (ICD-10-PCS; principal; 2017-12-26)
DX: F31.81 Bipolar II disorder (principal); F31.2 Bipolar disorder, current episode manic severe with psychotic features; F41.9 Anxiety disorder, unspecified; E73.9 Lactose intolerance, unspecified; F17.210 Nicotine dependence, cigarettes, uncomplicated; Z81.8 Family history of other mental and behavioral disorders; Z72.89 Other problems related to lifestyle
CPT/HCPCS: 36415; 80053; 80061; 80178; 80307; 80320; 80329; 81003; 83036; 84443; 85025; 90853; 99222; 99231; 99232; 99238; 99283; A9270-GY; G0480

== ENCOUNTER 2018-04-24 09:37 | Inpatient (IN) | payer OTHER ==
[2018-04-24 10:13] LABS: ABS Basophils 0.1 10^3/ul (0-0.2); ABS Eosinophils 0.1 10^3/ul (0-0.6); ABS Lymphocytes 0.8 10^3/ul (1.0-4.8); ABS Monocytes 0.4 10^3/ul (0-0.8); ABS Neutrophils 6.3 10^3/ul (1.5-7.7); ABS Nucleated RBC 0 10^3/ul; Eosinophil % 1.9 % (0-6); Hematocrit 48 % (42-52); Hemoglobin 15.9 g/dl (14.0-18.0); Lymphocyte % 10.9 % (25-47); Mean Corpuscular HGB Conc 33 g/dl (31-36); Mean Corpuscular Hemoglobin 29 pg (27-31); Mean Corpuscular Volume 87 fL (80-94); Mean Platelet Volume 7.9 um3 (7.4-10.4); Nucleated Red Blood Cells % 0; Platelet Count 252 10^3/ul (150-450); Red Blood Count 5.57 10^6/ul (4.00-5.40); Red Cell Distribution Width 14 % (10.5-15); White Blood Count 7.7 10^3/ul (3.5-10.8)
[2018-04-24 10:23] LABS: EGFR Non-African American 98.4 (>60)
[2018-04-24] MEDS ORDERED: NS 0.9% 1000 ML* 1,000 ML IV ONE ×2 (10:27)
[2018-04-24] MEDS ORDERED: LORazepam INJ* 2 MG/ML 1 ML VIAL IV PUSH ONE (11:02)
[2018-04-24] MEDS ORDERED: diPHENhydraMINE IV* 50 MG in NS 0.9% 50 ML* 50 ML IVPB ONE (11:02)
[2018-04-24] MEDS ORDERED: diPHENhydraMINE IV* 50 MG/ML 1 ml VIAL (BENADRYL) ONE (11:09)
--- NOTE | 2018-04-24 11:10 | ED ---
Psychiatric Complaint - HPI Summary HPI Summary: Patient is a 32 y/o M BIBA as 9.41. He was accompanied by EMS and [place] police. Patient is a level 5 caveat. Per [place] police, patient was found on [facility] this morning and was stating, "I'm going to bring hell and domination down upon earth". Police reports patient was acting violent and making notions as if he was going to punch, kick, head butt various people. Patient is noted to have stated he was seeing spirits walk the earth. In the room, he was changed into leather restraints from cuffs. Patient was acting inappropriately towards Dr. Abad and not answering questions. He asked Dr. Abad, "Are you black?" and "How big are your boobs?". In room he is singing loudly and laughing as well. He denies drug use and states, "if you inject me with anything I'll fucking mary this place". Patient will be monitored . On triage, patient is noted to be bipolar and on [place]. - History Of Current Complaint Chief Complaint: EDMentalHealth Time Seen by Provider: 04/24/18 09:44 Hx Obtained From: EMS, Other: - [place] police Hx From Patient Unobtainable Due To: Altered Mental Status - level 5 caveat, not answering questions Onset/Duration: Lasting Hours - patient was found at [facility] this morning , Still Present Timing: Hours - found this morning Character: Manic - singing loudly and laughing in room Associated Signs And Symptoms: Positive: Hostile - making motions as if he was going to punch, kick, or head butt various people, asked Dr. Abad inappropriate questions, Hallucinating - per police, patient stated he was seeing spirits walk the earth - Allergies/Home Medications Allergies/Adverse Reactions: Allergies Allergy/AdvReac Type Severity Reaction Status Date / Time No Known Allergies Allergy Verified 04/25/18 01:41 PMH/Surg Hx/FS Hx/Imm Hx GI History: Comment Only: Other GI Disorders - lactose intolerant Sensory History: Reports: Hx Contacts or Glasses Denies: Hx Hearing Aid Opthamlomology History: Reports: Hx Contacts or Glasses Psychiatric History: Reports: Hx Anxiety - only when feeling depressed, Hx Depression, Hx Inpatient Treatment, Hx Community Mental Health Tx, Hx Bipolar Disorder Denies: Hx Eating Disorder, Hx of Violent Episodes Against Others - Surgical History Surgery Procedure, Year, and Place: 15 years ago [facility] nasal fracture repair Hx Anesthesia Reactions: No Infectious Disease History: No Infectious Disease History: Denies: Traveled Outside the [place] in Last 30 Days - Family History Known Family History: Negative: Diabetes - Social History Alcohol Use: None Alcohol Amount: 1-2 beer per year Substance Use Type: Reports: None Smoking Status (MU): Light Every Day Tobacco Smoker Type: Cigarettes Amount Used/How Often: 1/2 PPD for last 30 days and used no other tobacco products in last 30 days Length of Time of Smoking/Using Tobacco: 9 years Have You Smoked in the Last Year: Yes Review of Systems Positive: Other - altered mental status, acting violent, asking inappropriate questions, singing loudly and laughing in room All Other Systems Reviewed And Are Negative: No - Comments Additional Review of Systems Comments: level 5 caveat, patient is AMS Physical Exam - Summary Physical Exam Summary: GENERAL: Patient is a well developed and nourished male who is lying comfortable in the stretcher. Patient is not in any acute respiratory distress. HEAD AND FACE: Normocephalic EYES: PERRLA, EOMI x 2. EARS: Hearing grossly intact. MOUTH: Oropharynx within normal limits. NECK: Supple, trachea is midline, no adenopathy, no JVD, no carotid bruit. CHEST: Symmetric, no tenderness at palpation LUNGS: Clear to auscultation bilaterally. No wheezing or crackles. CVS: Regular rate and rhythm, S1 and S2 present, no murmurs or gallops appreciated. ABDOMEN: Soft, non-tender. Bowel sounds are normal. No abdominal abnormal pulsations. EXTREMITIES: Full ROM in all major joints, no edema, no cyanosis or clubbing. NEURO: Alert and oriented x 3. No acute neurological deficits. Speech is normal. SKIN: Dry and warm PSYCH: No SA, no HI, no hallucinating noted. Level 5 caveat, patient is non- cooperative. No other abnormal findings. Triage Information Reviewed: Yes Vital Signs On Initial Exam: Initial Vitals Temp Pulse Resp BP Pulse Ox 100.0 F 89 20 140/78 99 04/24/18 09:43 04/24/18 09:43 04/24/18 09:43 04/24/18 09:43 04/24/18 09:43 Vital Signs Reviewed: Yes Diagnostics - Vital Signs Vital Signs Temp Pulse Resp BP Pulse Ox 04/24/18 09:43 100.0 F 89 20 140/78 99 - Laboratory Lab Results: Lab Results 04/24/18 04/24/18 04/24/18 Range/Units 09:59 09:59 09:59 WBC 7.7 (3.5-10.8) 10^3/ul RBC 5.57 H (4.00-5.40) 10^6/ul Hgb 15.9 (14.0-18.0) g/dl Hct 48 (42-52) % MCV 87 (80-94) fL MCH 29 (27-31) pg MCHC 33 (31-36) g/dl RDW 14 (10.5-15) % Plt Count 252 (150-450) 10^3/ul MPV 7.9 (7.4-10.4) um3 Neut % (Auto) 81.2 (38-83) % Lymph % (Auto) 10.9 L (25-47) % Denali % (Auto) 5.3 (0-7) % Eos % (Auto) 1.9 (0-6) % Baso % (Auto) 0.7 (0-2) % Absolute Neuts (auto) 6.3 (1.5-7.7) 10^3/ul Absolute Lymphs (auto) 0.8 L (1.0-4.8) 10^3/ul Absolute Monos (auto) 0.4 (0-0.8) 10^3/ul Absolute Eos (auto) 0.1 (0-0.6) 10^3/ul Absolute Basos (auto) 0.1 (0-0.2) 10^3/ul Absolute Nucleated RBC 0 10^3/ul Nucleated RBC % 0 Sodium 139 (135-145) mmol/L Potassium 4.0 (3.5-5.0) mmol/L Chloride 104 (101-111) mmol/L Carbon Dioxide 24 (22-32) mmol/L Anion Gap 11 (2-11) mmol/L BUN 12 (6-24) mg/dL Creatinine 0.90 (0.67-1.17) mg/dL Est GFR ( Amer) 119.1 (>60) Est GFR (Non-Af Amer) 98.4 (>60) BUN/Creatinine Ratio 13.3 (8-20) Glucose 85 (70-100) mg/dL Lactic Acid 6.0 H* (0.5-2.0) mmol/L Calcium 9.5 (8.6-10.3) mg/dL Total Bilirubin 0.50 (0.2-1.0) mg/dL AST 21 (13-39) U/L ALT 22 (7-52) U/L Alkaline Phosphatase 66 (34-104) U/L Total Creatine Kinase 303 H (10-223) U/L Total Protein 7.0 (6.4-8.9) g/dL Albumin 4.4 (3.2-5.2) g/dL Globulin 2.6 (2-4) g/dL Albumin/Globulin Ratio 1.7 (1-3) TSH Pending Salicylates < 2.50 (<30) mg/dL Acetaminophen < 15 mcg/mL Serum Alcohol < 10 (<10) mg/dL Result Diagrams: 04/24/18 09:59 04/24/18 09:59 Lab Statement: Any lab studies that have been ordered have been reviewed, and results considered in the medical decision making process. Re-Evaluation - Re-Evaluation First Eval Re-Evaluation Time: 10:27 Comment: Patient has lactic acid of 6.0. Dr. Abad will assist with IV line insertion. Second Eval Re-Evaluation Time: 11:44 Change: Improved Comment: Patient is more cooperative and acting appropriately. He will be removed from restraints but remain under 1:1 observation. Course/Dx - Course Assessment/Plan: Patient is a 32 y/o M BIBA as 9.41. He was accompanied by EMS and [place] police. Patient is a level 5 caveat. Per [place] police, patient was found on [facility] this morning and was stating, "I'm going to bring hell and domination down upon earth". Police reports patient was acting violent and making notions as if he was going to punch, kick, head butt various people. Patient is noted to have stated he was seeing spirits walk the earth. In the room, he was changed into leather restraints from cuffs. Patient was acting inappropriately towards Dr. Abad and not answering questions. He asked Dr. Abad, "Are you black?" and "How big are your boobs?". In room he is singing loudly and laughing as well. He denies drug use and states, "if you inject me with anything I'll fucking mary this place". Patient will be monitored 1 on 1. On triage, patient is noted to be bipolar and on [place]. Physical exam showed no SA, HI, nor hallucinating. No other abnormal findings noted. At 1031, due to lactic acid of 6.0 and condition of patient, Dr. Abad will assist with IV line insertion. At 11:44, patient is more cooperative and acting appropriately. He will be removed from restraints but remain under 1:1 observation. During ED course, patient was given fluids, Ativan 1 mg IV PUSH ED ONCE ONE and Diphenhydramine HCl 50 mg in NaCl, 51 mls @102 mls/her IVPB ONCE ONE. UA showed trace urine ketones. Tox showed [place] .1. Patient's case was discussed with Dr. Baires at 1242. Dr Baires will accept patient for admission to [facility], patient diagnosed with bipolar disorder, manic. - Differential Dx/Clinical Impression Provider Diagnosis: Bipolar disorder, manic - Physician Notifications Discussed Care Of Patient With: Harjinder Baires Time Discussed With Above Provider: 12:42 Instructed by Provider To: Other - Dr. Baires was consulted on patient's case at 1242. Patient will be admitted as 9.39 to [facility] for further workup with Dr. Baires accepting. Discharge - Sign-Out/Discharge Documenting (check all that apply): Patient Departure - admit - Discharge Plan Condition: Good Disposition: PSYCHIATRIC FACILITY-[facility] - Billing Disposition and Condition Condition: GOOD Disposition: Psychiatric Facility [facility] - Attestation Statements Document Initiated by Scribe: Yes Documenting Scribe: Wil Villagomez Provider For Whom Teetee is Documenting (Include Credential): Edita Abad Scribe Attestation: Wil Hamlin, valerianoed for Edita Abad on 04/25/18 at 8746. Scribe Documentation Reviewed: Yes Provider Attestation: The documentation as recorded by the jasminibeWil accurately reflects the service I personally performed and the decisions made by , Edita Abad
[2018-04-24 11:53] LABS: Urine Appearance Clear; Urine Blood Negative (Negative); Urine Color Yellow; Urine Ketones Trace (Negative); Urine Protein Negative (Negative); Urine Urobilinogen Negative (Negative)
[2018-04-24 12:07] LABS: Lithium < 0.10 mmol/L (0.6-1.2)
[2018-04-24] MEDS ORDERED: Acetaminophen TAB* 325 MG PO PRN (12:19)
[2018-04-24] MEDS ORDERED: Al Hydrox/Mg Hydrox/Simet LIQ* 30 ML UDC PO PRN (12:19)
[2018-04-24] MEDS ORDERED: LORazepam TAB(*) 1 MG PO PRN (15:41)
[2018-04-24] MEDS ORDERED: Haloperidol TAB* 5 MG PO PRN (15:41)
[2018-04-24] MEDS: QUEtiapine XR TAB* 200 MG PO SCH (20:59)
[2018-04-24] MEDS: Lithium Carbonate ER* 450 MG TAB.ER PO SCH (20:59)
[2018-04-24] MEDS: QUEtiapine XR TAB* 300 MG PO SCH (21:00)
[2018-04-24] MEDS ORDERED: QUEtiapine XR TAB* 50 MG PO SCH (21:00)
[2018-04-24] MEDS ORDERED: QUEtiapine XR TAB* 200 MG PO SCH (21:00)
[2018-04-25] MEDS: Vitamin THERAPEUTIC TAB PO SCH (08:55)
--- NOTE | 2018-04-25 16:57 | HP ---
PSYCHIATRIC HISTORY AND PHYSICAL: DATE OF ADMISSION: 04/24/18 JUSTIFICATION FOR ADMISSION: The patient is in need of 24-hour supervision and care secondary to man ic psychosis and inability to care for himself in the less restrictive setting. CHIEF COMPLAINT: "I don't see what I've to do to make people realize that I'm special." HISTORY OF PRESENT ILLNESS: The patient is a 32-year-old [place] male with a history of b ipolar disorder, who presents accompanied by the [place] Police in handcuffs after inappropriate and disruptive behavior on the campus of [facility]. Upon arrival, [place] Police reported that he was on their campus directing attention to himself, "talking like he was God," stating that he was going to "bring hell and damnation down upon the earth." He was acting delusionally and violent. Oren peña was stating that he sees spirits walking the earth. In our emergency room, he was inappropriate tow ards the female ED attending, asking inappropriate questions such as "how big are your boobs ?" and " are you black ?" The patient was singing loudly in his room and laughing to himself. He was placed i n restraints and warranted involuntary admission to the behavioral science unit. Here on our unit, he has been inappropriate with female peers, has displayed poor boundaries and is hyperreligious. We s poke with his sister, Prabhjot, for collateral information and she does note that he has had several st ressors recently. 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 She also notes their mother has been hospitalized in [place], [place], for brain aneur ysm and this has been stressful for the entire family. On examination, Michael is grandiose, hyperre ligious, telling me that he is special and that God put him on this earth to heal people. He demonst rates several hallmark bipolar bertha symptoms such as distractibility, indiscretion, grandiosity, fli ght of ideas, increased goal-directed activities, decreased sleep, and intense hyperverbal speech. PSYCHIATRIC HISTORY: The patient has 5 previous psychiatric admissions here at [facility] , the last being in November of 2017 under the service of Dr. Baires. In the outpatient setting, he sees Dr. Sonal Arenas at [facility] and has been stabilized in the past on lith ium and Seroquel. He denies any history of abuse, but does indicate that he was bullied severely as a child because he was an immigrant and went to special ed classes. SUBSTANCE ABUSE HISTORY: He admits to occasional social alcohol, but he denies illicit substance abu se or use of tobacco. PAST MEDICAL HISTORY: Noncontributory. FAMILY HISTORY: Significant for a sister with bipolar disorder. SOCIAL HISTORY: The patient resides with his [place] immigrant parents. He graduated from a local high school and for the past several months had been working in an [employer] and also working at a [employer]. He is not in any current relationships. 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 He has no current legal issues. REVIEW OF SYSTEMS: The patient denies headache or double vision. He denies sore throat, cough, ches t pain, difficulty breathing. He denies abdominal pain, nausea, vomiting, diarrhea, or constipation. He denies difficulty ambulating, enlarged lymph nodes, rashes, fevers, or changes in weight. PHYSICAL EXAMINATION VITAL SIGNS: 133/63, heart rate 78, respiratory rate 16, temperature is 98.7 degrees Fahrenheit, oxy gen saturations are 97% on room air. HEENT: Head is normocephalic, atraumatic. NECK: Supple. CHEST: Clear to auscultation bilaterally. CARDIAC: Exam reveals normal heart sounds. ABDOMEN: Soft, nontender. MUSCULOSKELETAL: Exam reveals no sign of edema. NEUROLOGICAL: He is grossly intact with no focal deficits. SKIN: Warm and dry. LABORATORY DATA: Complete blood count and complete metabolic panel are within normal limits. His t otal creatine kinase is somewhat elevated at 303. TSH 0.60. Urinalysis within normal limits. Urine drug screen negative for all substances tested. His lithium level is subtherapeutic at less than 0.1 . MENTAL STATUS EXAM: The patient is a young, dark-skinned male, wearing blue scrubs, who is leobardo an, well groomed. He has eye glasses. He is hyperkinetic with an elevated rate of speech, which is pressured and over productive. Mood is manic with an expansive to labile affect. Thought process re veals elevated thought rate and some flight of ideas. Thought content is significant for grandiosity and hyperreligious thinking. He denies suicidal or homicidal ideations. He denies auditory or visu al hallucinations. Insight and judgment are poor given his delusional beliefs. Cognitively, he is a wake and alert with what would appear to be an average intellect. DIAGNOSES: As follows: Dunbar I: Bipolar disorder, type 1, manic, severe with psychotic features. Dunbar II: Deferred. IMPRESSION: The patient is a 32-year-old [place] male with a history of bipolar disorder, who arrives via the police from [facility] where he had been discovered making a scene in [facility], appearing to be manic and agitated, preaching to onlookers. He was resistant and combative wit h apprehension, brought to the ER where he remained inappropriately sexual and hyperreligious. At th is time, he certainly requires further inpatient treatment. PLAN: The patient is admitted to the Adult Behavioral Health Unit where he is placed on q.15-minute checks for his own safety. We have resumed his outpatient medication regimen including lithium 900 m g p.o. q.h.s. as well as Seroquel XR 500 mg p.o. q.h.s. We will be contacting the mental health clin ic to make sure that we can enroll him in prompt outpatient followup and will be inviting his family to participate in his care as much as they can given the health status of his mother. While Michael i s here, he is certainly encouraged to avail himself of all milieu activities including individual and group psychotherapies. [id number]/[facility] #: [id number]
[2018-04-25] MEDS ORDERED: Mouth Piece, Nicotine* 1 EACH CARTRIDGE INH ONE (21:00)
[2018-04-25] MEDS: QUEtiapine XR TAB* 300 MG PO SCH (21:16)
[2018-04-25] MEDS: QUEtiapine XR TAB* 200 MG PO SCH (21:16)
[2018-04-25] MEDS: Lithium Carbonate ER* 450 MG TAB.ER PO SCH (21:16)
[2018-04-26] MEDS: Nicotine Inhaler* 10 MG AMP INH PRN ×2 (05:43→12:49)
[2018-04-26] MEDS: Vitamin THERAPEUTIC TAB PO SCH (09:06)
[2018-04-26] MEDS: QUEtiapine XR TAB* 300 MG PO SCH (21:25)
[2018-04-26] MEDS: QUEtiapine XR TAB* 200 MG PO SCH (21:25)
[2018-04-26] MEDS: Lithium Carbonate ER* 450 MG TAB.ER PO SCH (21:25)
[2018-04-27] MEDS: Nicotine Inhaler* 10 MG AMP INH PRN ×3 (07:20→20:09)
[2018-04-27] MEDS: Vitamin THERAPEUTIC TAB PO SCH (09:33)
--- NOTE | 2018-04-27 13:54 | PN ---
Subjective - Subjective Date of Service: 04/27/18 Service Type: 79175 Hosp care 15 min low complexity Subjective: Patient grandiose, hyperverbal and manic. Intrusive with peers. Throwing paper airplanes around the unit and when instructed to stop, replies "You can do it so get mad at me. I'm the only one who's smart enough to make them." He continues to be hyperreligious, saying that he is a prophet and needs to preach to the people in the community. He acknowledges the illness of his mother, saying "She will be fine because I have autumn." He denies SI or HI. Objective - Appearance Appearance: Well Developed/Nourished Dysmorphic Features: No Hygiene: Normal Grooming: Well Kept - Behavior Psychomotor Activities: Normal Exhibits Abnormal Movement: No - Attitude and Relatedness Attitude and Relatedness: Irritable Eye Contact: Good - Speech Quality: Pressured Latencies: Short Quantity: Copious - Mood Patient's Decription of Mood: "Fine" - Affect Observed Affect: Expansive Affect Consistent with: Euphoria - Thought Process Patient's Thought Process: Tangential Thought Content: Yes Paranoid Ideation, No Passive Wish, No Suicidal Planning, No Homicidal Ideation - Sensorium Experiencing Hallucinations: No, Sensorium is Clear Type of Hallucinations: Visual: No, Auditory: No, Command: No - Level of Consciousness Level of Consciousness: Alert Orientation: Yes Intact, Yes Orientated to Time, Yes Orientated to Place, Yes Orientated to Person - Impulse Control Impulse Control: Poor - Insight and Judgement Insight and Judgement: Impaired - Group Participation Particating in Group Activities: No - Medication Management Medication Management Adherence: Yes Assessment - Assessment Merits Inpatient Hospitalization: For Immediate Safety, For Stabilization Inpatient DSM-V Dx: F31.13 Clinical Impression: 32 y.o. 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 Plan - Plan Treatment Plan: Name: MANOJ THOMPSON Birthdate: 1985 [id number] The patient's outpatient regimen of lithium 900mg PO qhs and quetiapine XR 500mg PO qhs has been resumed. He remains manic and unable to care for himself. Continue inpatient treatment. Continued Medication Management: Start Medication Medications: Current Medications Acetaminophen (Tylenol Tab*) 650 mg PO Q4H PRN PRN Reason: for pain; or Temp >101 F Al Hydrox/Mg Hydrox/Simethicone (Maalox Plus*) 30 ml PO Q4H PRN PRN Reason: INDIGESTION Haloperidol (Haldol Tab*) 5 mg PO Q6H PRN PRN Reason: AGITATION Barada Carbonate (Barada Carbonate Er Tab*) 900 mg PO 2100 [facility] Last Admin: 04/26/18 21:25 Dose: 900 mg Lorazepam (Ativan Tab(*)) 2 mg PO Q6H PRN PRN Reason: ANXIETY Multivitamins (Theragran Tab*) 1 tab PO DAILY [facility] Last Admin: 04/27/18 09:33 Dose: Not Given Nicotine (Nicotine Inhaler*) 10 mg INH Q2H PRN PRN Reason: CRAVINGS Last Admin: 04/27/18 07:20 Dose: 10 mg Quetiapine Fumarate (Seroquel Xr Tab*) 300 mg PO 2100 [facility] Last Admin: 04/26/18 21:25 Dose: 300 mg Quetiapine Fumarate (Seroquel Xr Tab*) 200 mg PO 2100 [facility] Last Admin: 04/26/18 21:25 Dose: 200 mg - Discharge Plan Discharge Plan: Inpatient Hospitalization
[2018-04-27] MEDS: Lithium Carbonate ER* 450 MG TAB.ER PO SCH (21:04)
[2018-04-27] MEDS: QUEtiapine XR TAB* 300 MG PO SCH (21:04)
[2018-04-27] MEDS: QUEtiapine XR TAB* 200 MG PO SCH (21:05)
[2018-04-28] MEDS: Vitamin THERAPEUTIC TAB PO SCH (08:56)
[2018-04-28] MEDS: Nicotine Inhaler* 10 MG AMP INH PRN ×2 (09:21→16:09)
[2018-04-28] MEDS ORDERED: Mouth Piece, Nicotine* 1 EACH CARTRIDGE ONE (16:09)
--- NOTE | 2018-04-28 17:48 | PN ---
Subjective - Subjective Date of Service: 04/28/18 Service Type: 95661 Hosp care 15 min low complexity Subjective: The patient is hyperreligious, overtalkative and grandiose, saying that he's "special" and "a leader of men." "I want to get out of here and get back to preaching the word of God. I want to walk in the footsteps of Barry. I wish I had run away from the police, then I wouldn't be here." Objective - Appearance Appearance: Well Developed/Nourished Dysmorphic Features: No Hygiene: Normal Grooming: Well Kept - Behavior Psychomotor Activities: Normal Exhibits Abnormal Movement: No - Attitude and Relatedness Attitude and Relatedness: Psychotically Related Eye Contact: Fair - Speech Quality: Pressured Latencies: Short Quantity: Copious - Mood Patient's Decription of Mood: "Great" - Affect Observed Affect: Expansive Affect Consistent with: Euphoria - Thought Process Patient's Thought Process: Tangential Thought Content: Yes Paranoid Ideation, No Passive Wish, No Suicidal Planning, No Homicidal Ideation - Sensorium Experiencing Hallucinations: No, Sensorium is Clear Type of Hallucinations: Visual: No, Auditory: No, Command: No - Level of Consciousness Level of Consciousness: Alert Orientation: Yes Intact, Yes Orientated to Time, Yes Orientated to Place, Yes Orientated to Person - Impulse Control Impulse Control: Poor - Insight and Judgement Insight and Judgement: Impaired - Group Participation Particating in Group Activities: No - Medication Management Medication Management Adherence: Yes Assessment - Assessment Merits Inpatient Hospitalization: For Immediate Safety, For Stabilization Inpatient DSM-V Dx: F31.13 Clinical Impression: 32 y.o. 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 Plan - Plan Treatment Plan: Name: MANOJ THOMPSON Birthdate: 1985 [id number] The patient's outpatient regimen of lithium 900mg PO qhs and quetiapine XR 500mg PO qhs has been resumed. He remains manic and unable to care for himself. Continue inpatient treatment. Derma level in the AM. Continued Medication Management: Continue Outpt Medication Medications: Current Medications Acetaminophen (Tylenol Tab*) 650 mg PO Q4H PRN PRN Reason: for pain; or Temp >101 F Al Hydrox/Mg Hydrox/Simethicone (Maalox Plus*) 30 ml PO Q4H PRN PRN Reason: INDIGESTION Haloperidol (Haldol Tab*) 5 mg PO Q6H PRN PRN Reason: AGITATION Derma Carbonate (Derma Carbonate Er Tab*) 900 mg PO 2100 [facility] Last Admin: 04/27/18 21:04 Dose: 900 mg Lorazepam (Ativan Tab(*)) 2 mg PO Q6H PRN PRN Reason: ANXIETY Multivitamins (Theragran Tab*) 1 tab PO DAILY [facility] Last Admin: 04/28/18 08:56 Dose: 1 tab Nicotine (Nicotine Inhaler*) 10 mg INH Q2H PRN PRN Reason: CRAVINGS Last Admin: 04/28/18 16:09 Dose: 10 mg Quetiapine Fumarate (Seroquel Xr Tab*) 300 mg PO 2100 [facility] Last Admin: 04/27/18 21:04 Dose: 300 mg Quetiapine Fumarate (Seroquel Xr Tab*) 200 mg PO 2100 [facility] Last Admin: 04/27/18 21:05 Dose: 200 mg - Discharge Plan Discharge Plan: Inpatient Hospitalization Lab Results - Lab Results Lab Results: 04/28/18 04/28/18 07:46 07:46 Hemoglobin A1c 5.2 Triglycerides 389 Cholesterol 176 LDL Cholesterol 60 HDL Cholesterol 38.3
[2018-04-28] MEDS: QUEtiapine XR TAB* 200 MG PO SCH (21:10)
[2018-04-28] MEDS: QUEtiapine XR TAB* 300 MG PO SCH (21:10)
[2018-04-28] MEDS: Lithium Carbonate ER* 450 MG TAB.ER PO SCH (21:10)
[2018-04-29 07:52] LABS: Lithium 0.67 mmol/L (0.6-1.2)
[2018-04-29] MEDS: Vitamin THERAPEUTIC TAB PO SCH (08:08)
[2018-04-29] MEDS: Nicotine Inhaler* 10 MG AMP INH PRN ×3 (09:24→21:09)
--- NOTE | 2018-04-29 11:44 | PN ---
Subjective - Subjective Date of Service: 04/29/18 Service Type: 44004 Hosp care 15 min low complexity Subjective: Ro is in euphoric spirits. Offers me hall and valuables in exchange for discharge. Tells me that he has extraordinary abilities and is "chosen by God to do His work." Patient is attending groups and displaying slightly better boundaries. He is taking meds as prescribed. Objective - Appearance Appearance: Well Developed/Nourished Dysmorphic Features: No Hygiene: Normal Grooming: Well Kept - Behavior Psychomotor Activities: Abnormal-Increased Exhibits Abnormal Movement: Yes - Attitude and Relatedness Attitude and Relatedness: Cooperative Eye Contact: Good - Speech Quality: Pressured Latencies: Short Quantity: Copious - Mood Patient's Decription of Mood: "Great" - Affect Observed Affect: Expansive Affect Consistent with: Euphoria - Thought Process Patient's Thought Process: Coherent, Tangential Thought Content: Yes Paranoid Ideation, No Passive Wish, No Suicidal Planning, No Homicidal Ideation - Sensorium Experiencing Hallucinations: No, Sensorium is Clear Type of Hallucinations: Visual: No, Auditory: No, Command: No - Level of Consciousness Level of Consciousness: Alert Orientation: Yes Intact, Yes Orientated to Time, Yes Orientated to Place, Yes Orientated to Person - Impulse Control Impulse Control: Poor - Insight and Judgement Insight and Judgement: Impaired - Group Participation Particating in Group Activities: Yes - Medication Management Medication Management Adherence: Yes Assessment - Assessment Merits Inpatient Hospitalization: For Immediate Safety, For Stabilization Inpatient DSM-V Dx: F31.13 Clinical Impression: 32 y.o. 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 Plan - Plan Treatment Plan: Name: MANOJ THOMPSON Birthdate: 1985 [id number] The patient's outpatient regimen of lithium 900mg PO qhs and quetiapine XR 500mg PO qhs has been resumed. He remains manic and unable to care for himself. Continue inpatient treatment. [place] level therapeutic at 67. Continued Medication Management: Continue Outpt Medication Medications: Current Medications Acetaminophen (Tylenol Tab*) 650 mg PO Q4H PRN PRN Reason: for pain; or Temp >101 F Al Hydrox/Mg Hydrox/Simethicone (Maalox Plus*) 30 ml PO Q4H PRN PRN Reason: INDIGESTION Haloperidol (Haldol Tab*) 5 mg PO Q6H PRN PRN Reason: AGITATION [place] Carbonate ([place] Carbonate Er Tab*) 900 mg PO 2100 [facility] Last Admin: 04/28/18 21:10 Dose: 900 mg Lorazepam (Ativan Tab(*)) 2 mg PO Q6H PRN PRN Reason: ANXIETY Multivitamins (Theragran Tab*) 1 tab PO DAILY [facility] Last Admin: 04/29/18 08:08 Dose: Not Given Nicotine (Nicotine Inhaler*) 10 mg INH Q2H PRN PRN Reason: CRAVINGS Last Admin: 04/29/18 09:24 Dose: 10 mg Quetiapine Fumarate (Seroquel Xr Tab*) 300 mg PO 2100 [facility] Last Admin: 04/28/18 21:10 Dose: 300 mg Quetiapine Fumarate (Seroquel Xr Tab*) 200 mg PO 2100 [facility] Last Admin: 04/28/18 21:10 Dose: 200 mg - Discharge Plan Discharge Plan: Inpatient Hospitalization Lab Results - Lab Results Lab Results: 04/28/18 04/28/18 04/29/18 07:46 07:46 06:38 Hemoglobin A1c 5.2 Triglycerides 389 479 Cholesterol 176 163 LDL Cholesterol 60 LDL Cholesterol Direct 83 HDL Cholesterol 38.3 33.6 [place] 0.67 04/29/18 06:38 Hemoglobin A1c 5.3 Triglycerides Cholesterol LDL Cholesterol LDL Cholesterol Direct HDL Cholesterol [place]
[2018-04-29] MEDS: Lithium Carbonate ER* 450 MG TAB.ER PO SCH (21:08)
[2018-04-29] MEDS: QUEtiapine XR TAB* 200 MG PO SCH (21:09)
[2018-04-29] MEDS: QUEtiapine XR TAB* 300 MG PO SCH (21:09)
[2018-04-30] MEDS: Nicotine Inhaler* 10 MG AMP INH PRN ×4 (08:36→17:56)
[2018-04-30] MEDS: Vitamin THERAPEUTIC TAB PO SCH (08:37)
[2018-04-30] MEDS: Lithium Carbonate ER* 450 MG TAB.ER PO SCH (20:27)
[2018-04-30] MEDS: QUEtiapine XR TAB* 200 MG PO SCH (20:27)
[2018-04-30] MEDS: QUEtiapine XR TAB* 300 MG PO SCH (20:28)
[2018-05-01] MEDS: Nicotine Inhaler* 10 MG AMP INH PRN ×3 (07:35→20:35)
--- NOTE | 2018-05-01 11:34 | PN ---
MHU: Group Therapy Note - Service Type Service Type: [id number] Group Psychotherapy - Cognitive Behavioral Group Psychotherapy: Ellie presented in characteristic fashion, exhibiting expansive mood and grandiose thoughts, describing his intentions of sueing [facility], [employer] and a former employer and offering to buy cars for people who will testify for him. Despite this, he presents with good affect, and is interactive with peers.
[2018-05-01] MEDS: Vitamin THERAPEUTIC TAB PO SCH (11:59)
--- NOTE | 2018-05-01 12:11 | PN ---
Subjective - Subjective Date of Service: 05/01/18 Service Type: 95387 Hosp care 15 min low complexity Subjective: Ro is in good spirits, far less demonstrative than previously noted in this admission. He is approaching euthymia but is still showing hypomanic symptoms of grandiosity and elevated rate of speech. He denies SI or HI and is taking his medications as prescribed. Objective - Appearance Appearance: Well Developed/Nourished Dysmorphic Features: No Hygiene: Normal Grooming: Well Kept - Behavior Psychomotor Activities: Abnormal-Increased Exhibits Abnormal Movement: No - Attitude and Relatedness Attitude and Relatedness: Cooperative Eye Contact: Good - Speech Quality: Pressured Latencies: Short Quantity: Copious - Mood Patient's Decription of Mood: "Great" - Affect Observed Affect: Expansive Affect Consistent with: Euphoria - Thought Process Patient's Thought Process: Tangential Thought Content: No Passive Wish, No Suicidal Planning, No Homicidal Ideation, No Paranoid Ideation - Sensorium Experiencing Hallucinations: No, Sensorium is Clear Type of Hallucinations: Visual: No, Auditory: No, Command: No - Level of Consciousness Level of Consciousness: Alert Orientation: Yes Intact, Yes Orientated to Time, Yes Orientated to Place, Yes Orientated to Person - Impulse Control Impulse Control: Poor - Insight and Judgement Insight and Judgement: Impaired - Group Participation Particating in Group Activities: Yes - Medication Management Medication Management Adherence: Yes Assessment - Assessment Merits Inpatient Hospitalization: For Immediate Safety, For Stabilization Inpatient DSM-V Dx: F31.13 Clinical Impression: 32 y.o. single, Tajik-South Sudanese male with a history of bipolar disorder arrives brought in by [facility] police on a 9.41 status after being apprehended disrupting [employer] 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 Plan - Plan Treatment Plan: Name: MANOJ THOMPSON Birthdate: 1985 [id number] We have placed him back on his outpatient regimen of lithium 900mg PO qhs and quetiapine XR 500mg PO qhs and his lithium level is therapeutic at 67. He appears to be improving and could be discharged as soon as Friday of next week. Continue inpatient treatment. Continued Medication Management: Continue Outpt Medication Medications: Current Medications Acetaminophen (Tylenol Tab*) 650 mg PO Q4H PRN PRN Reason: for pain; or Temp >101 F Al Hydrox/Mg Hydrox/Simethicone (Maalox Plus*) 30 ml PO Q4H PRN PRN Reason: INDIGESTION Haloperidol (Haldol Tab*) 5 mg PO Q6H PRN PRN Reason: AGITATION [place] Carbonate (Goodell Carbonate Er Tab*) 900 mg PO 2100 [facility] Last Admin: 04/30/18 20:27 Dose: 900 mg Lorazepam (Ativan Tab(*)) 2 mg PO Q6H PRN PRN Reason: ANXIETY Multivitamins (Theragran Tab*) 1 tab PO DAILY [facility] Last Admin: 05/01/18 11:59 Dose: Not Given Nicotine (Nicotine Inhaler*) 10 mg INH Q2H PRN PRN Reason: CRAVINGS Last Admin: 05/01/18 07:35 Dose: 10 mg Quetiapine Fumarate (Seroquel Xr Tab*) 300 mg PO 2100 [facility] Last Admin: 04/30/18 20:28 Dose: 300 mg Quetiapine Fumarate (Seroquel Xr Tab*) 200 mg PO 2100 [facility] Last Admin: 04/30/18 20:27 Dose: 200 mg - Discharge Plan Discharge Plan: Inpatient Hospitalization
[2018-05-01] MEDS: Lithium Carbonate ER* 450 MG TAB.ER PO SCH (20:35)
[2018-05-01] MEDS: QUEtiapine XR TAB* 300 MG PO SCH (20:35)
[2018-05-01] MEDS: QUEtiapine XR TAB* 200 MG PO SCH (20:35)
[2018-05-02] MEDS: Nicotine Inhaler* 10 MG AMP INH PRN ×3 (07:41→19:52)
[2018-05-02] MEDS: Vitamin THERAPEUTIC TAB PO SCH (07:41)
[2018-05-02] MEDS: QUEtiapine XR TAB* 300 MG PO SCH (21:38)
[2018-05-02] MEDS: Lithium Carbonate ER* 450 MG TAB.ER PO SCH (21:38)
[2018-05-02] MEDS: QUEtiapine XR TAB* 200 MG PO SCH (21:39)
[2018-05-03] MEDS: Nicotine Inhaler* 10 MG AMP INH PRN ×5 (06:30→19:15)
[2018-05-03] MEDS: Vitamin THERAPEUTIC TAB PO SCH (09:20)
[2018-05-03] MEDS: QUEtiapine XR TAB* 300 MG PO SCH (20:58)
[2018-05-03] MEDS: Lithium Carbonate ER* 450 MG TAB.ER PO SCH (20:58)
[2018-05-03] MEDS: QUEtiapine XR TAB* 200 MG PO SCH (20:58)
[2018-05-04] MEDS: Vitamin THERAPEUTIC TAB PO SCH (07:48)
[2018-05-04] MEDS: Nicotine Inhaler* 10 MG AMP INH PRN ×3 (07:48→20:49)
--- NOTE | 2018-05-04 16:09 | PN ---
Subjective - Subjective Date of Service: 05/04/18 Subjective: Michael reports feeling back to his baseline with sustained improvements in previous manic/psychotic symptoms. He denies side effects from his prescribed meds. Per staff, he has been adherent to unit's routines. Objective - Appearance Appearance: Healthy Appearing Dysmorphic Features: No Hygiene: Normal Grooming: Well Kept - Behavior Psychomotor Activities: Normal Exhibits Abnormal Movement: No - Attitude and Relatedness Attitude and Relatedness: Cooperative Eye Contact: Fair - Speech Quality: Unpressured Latencies: Short - Mood Patient's Decription of Mood: "Okay" - Affect Observed Affect: Fair Affect Consistent with: Euthymia - Thought Process Patient's Thought Process: Coherent, Goal Directed Thought Content: No Passive Wish, No Suicidal Planning, No Homicidal Ideation, No Paranoid Ideation - Sensorium Experiencing Hallucinations: No, Sensorium is Clear - Level of Consciousness Level of Consciousness: Alert Orientation: Yes Intact - Impulse Control Impulse Control: Intact - Insight and Judgement Insight and Judgement: Fair - Group Participation Particating in Group Activities: Yes - Medication Management Medication Management Adherence: Yes Assessment - Assessment Merits Inpatient Hospitalization: For Ongoing Evaluation, Consolidate Improvements, For Discharge Planning Inpatient DSM-V Dx: F31.13 Clinical Impression: Stabilizing in this structure setting with sustained improvement in previous manic and psychotic symptoms. Plan - Plan Treatment Plan: Name: MICHAEL THOMPSON Birthdate: 1985 [id number] Continued Medication Management: Continue Outpt Medication Medications: Current Medications Acetaminophen (Tylenol Tab*) 650 mg PO Q4H PRN PRN Reason: for pain; or Temp >101 F Al Hydrox/Mg Hydrox/Simethicone (Maalox Plus*) 30 ml PO Q4H PRN PRN Reason: INDIGESTION Haloperidol (Haldol Tab*) 5 mg PO Q6H PRN PRN Reason: AGITATION [place] Carbonate ([place] Carbonate Er Tab*) 900 mg PO 2100 [facility] Last Admin: 05/03/18 20:58 Dose: 900 mg Lorazepam (Ativan Tab(*)) 2 mg PO Q6H PRN PRN Reason: ANXIETY Multivitamins (Theragran Tab*) 1 tab PO DAILY [facility] Last Admin: 05/04/18 07:48 Dose: 1 tab Nicotine (Nicotine Inhaler*) 10 mg INH Q2H PRN PRN Reason: CRAVINGS Last Admin: 05/04/18 16:02 Dose: 10 mg Quetiapine Fumarate (Seroquel Xr Tab*) 300 mg PO 2100 [facility] Last Admin: 05/03/18 20:58 Dose: 300 mg Quetiapine Fumarate (Seroquel Xr Tab*) 200 mg PO 2100 [facility] Last Admin: 05/03/18 20:58 Dose: 200 mg - Discharge Plan Discharge Plan: Outpatient Follow Up Outpatient Program: [facility]
[2018-05-04] MEDS: QUEtiapine XR TAB* 300 MG PO SCH (20:46)
[2018-05-04] MEDS: Lithium Carbonate ER* 450 MG TAB.ER PO SCH (20:46)
[2018-05-04] MEDS: QUEtiapine XR TAB* 200 MG PO SCH (20:46)
[2018-05-05] MEDS: Nicotine Inhaler* 10 MG AMP INH PRN ×3 (08:04→17:09)
[2018-05-05] MEDS: Vitamin THERAPEUTIC TAB PO SCH (08:04)
[2018-05-05] MEDS: Lithium Carbonate ER* 450 MG TAB.ER PO SCH (21:10)
[2018-05-05] MEDS: QUEtiapine XR TAB* 200 MG PO SCH (21:11)
[2018-05-05] MEDS: QUEtiapine XR TAB* 300 MG PO SCH (21:11)
[2018-05-06] MEDS: Nicotine Inhaler* 10 MG AMP INH PRN ×4 (06:41→18:25)
[2018-05-06] MEDS: Vitamin THERAPEUTIC TAB PO SCH (09:24)
--- NOTE | 2018-05-06 12:09 | PN ---
MHU: Group Therapy Note - Service Type Service Type: [id number] Group Psychotherapy - Cognitive Behavioral Group Therapy ( CBT):Patient was attentive and participatory in CBT programming this morning, and remained in good behavioral control. Patient expressed positive insights regarding relevant treatment interventions and goals.
--- NOTE | 2018-05-06 16:06 | PN ---
MHU: Group Therapy Note - Service Type Service Type: [id number] Group Psychotherapy - Medication Education Group: Patient joined group and was intermittently in room. Patient asked questions that were not particularly on topic. Patient receptive to redirection when monopolizing group.
--- NOTE | 2018-05-06 16:28 | PN ---
Subjective - Subjective Date of Service: 05/06/18 Service Type: 99641 Hosp care 15 min low complexity Subjective: Manoj was seen along with unit SW Dinorah Araiza for follow up. He is in good spirits and appears much more euthymic than his admitting presentation. Manoj is confronted about his lack of adherence with outpatient treatment leading to this hospitalization. He acknowledges that he has mental illness, which he defines as "unipolar" bertha. "I don't get depressed" he reports with some pride. Nonetheless, he admits that he needs to stay in treatment and continue to take medications after discharge. We discussed options for improving outpatient treatment outcomes and he consents to being referred to a psychotherapist at [facility] to add to his ongoing med management with Dr. Sonal Arenas. He has been meeting milieu expectations per staff, attending groups and getting along appropriately with peers. He denies SI or HI. He makes no spontaneous delusional or hyperreligious statements. Objective - Appearance Appearance: Well Developed/Nourished Dysmorphic Features: No Hygiene: Normal Grooming: Well Kept - Behavior Psychomotor Activities: Normal Exhibits Abnormal Movement: No - Attitude and Relatedness Attitude and Relatedness: Cooperative Eye Contact: Good - Speech Quality: Unpressured Latencies: Normal Quantity: Appropriate - Mood Patient's Decription of Mood: "Great" - Affect Observed Affect: Expansive Affect Consistent with: Euthymia - Thought Process Patient's Thought Process: Coherent Thought Content: No Passive Wish, No Suicidal Planning, No Homicidal Ideation, No Paranoid Ideation - Sensorium Experiencing Hallucinations: No, Sensorium is Clear Type of Hallucinations: Visual: No, Auditory: No, Command: No - Level of Consciousness Level of Consciousness: Alert Orientation: Yes Intact, Yes Orientated to Time, Yes Orientated to Place, Yes Orientated to Person - Impulse Control Impulse Control: Tenuous - Insight and Judgement Insight and Judgement: Fair - Group Participation Particating in Group Activities: Yes - Medication Management Medication Management Adherence: Yes Assessment - Assessment Merits Inpatient Hospitalization: For Immediate Safety, For Stabilization Inpatient DSM-V Dx: F31.13 Clinical Impression: 32 y.o. 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 Plan - Plan Treatment Plan: Name: MANOJ THOMPSON Birthdate: 1985 [id number] We have placed him back on his outpatient regimen of lithium 900mg PO qhs and quetiapine XR 500mg PO qhs and his lithium level is therapeutic at 67. He appears to be improving and could be discharged tomorrow, May 07. Continued Medication Management: Continue Outpt Medication Medications: Current Medications Acetaminophen (Tylenol Tab*) 650 mg PO Q4H PRN PRN Reason: for pain; or Temp >101 F Al Hydrox/Mg Hydrox/Simethicone (Maalox Plus*) 30 ml PO Q4H PRN PRN Reason: INDIGESTION Haloperidol (Haldol Tab*) 5 mg PO Q6H PRN PRN Reason: AGITATION [place] Carbonate (Berthold Carbonate Er Tab*) 900 mg PO 2100 [facility] Last Admin: 05/05/18 21:10 Dose: 900 mg Lorazepam (Ativan Tab(*)) 2 mg PO Q6H PRN PRN Reason: ANXIETY Multivitamins (Theragran Tab*) 1 tab PO DAILY [facility] Last Admin: 05/06/18 09:24 Dose: 1 tab Nicotine (Nicotine Inhaler*) 10 mg INH Q2H PRN PRN Reason: CRAVINGS Last Admin: 05/06/18 12:47 Dose: 10 mg Quetiapine Fumarate (Seroquel Xr Tab*) 300 mg PO 2100 [facility] Last Admin: 05/05/18 21:11 Dose: 300 mg Quetiapine Fumarate (Seroquel Xr Tab*) 200 mg PO 2100 [facility] Last Admin: 05/05/18 21:11 Dose: 200 mg - Discharge Plan Discharge Plan: Outpatient Follow Up Outpatient Program: [facility]
[2018-05-06] MEDS: QUEtiapine XR TAB* 300 MG PO SCH (20:20)
[2018-05-06] MEDS: QUEtiapine XR TAB* 200 MG PO SCH (20:20)
[2018-05-06] MEDS: Lithium Carbonate ER* 450 MG TAB.ER PO SCH (20:20)
[2018-05-07] MEDS: Nicotine Inhaler* 10 MG AMP INH PRN (07:36)
[2018-05-07 09:26] VITALS: BP 115/77
[2018-05-07] MEDS: Vitamin THERAPEUTIC TAB PO SCH (09:42)
--- NOTE | 2018-05-07 15:45 | DS ---
DATE OF ADMISSION: 04/24/2018. DATE OF DISCHARGE: 05/07/2018. DISCHARGE DIAGNOSES: AXIS I: Bipolar disorder type 1, manic, severe with psychotic features. AXIS II: Deferred. CONDITION AT THE TIME OF DISCHARGE: Stable. Michael has returned to a state of euthymia. He is no longer grandiose and no longer showing evidence of hyperreligious thinking. He is future oriented, indicating that he will spend the next few weeks at home recovering along with his family. 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 The patient is agreeable with outpatient follow- up, including med management and psychotherapeutic services at the [facility] where he is already enrolled. The patient's Short level is therapeutic and he is agreeable with medications, tolerating them well. Michael has been safe on all checks, very much social with peers, and cooperative with family during visitations. His family is aware of his discharge plans and are agreeable. 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 At this point, we do not believe further involuntary treatment is warranted on the inpatient setting. LABORATORY DATA: Metabolic studies were gathered on the 29 of April. Hemoglobin A1c was 5.3, triglycerides 479, cholesterol 163, LDL cholesterol 83, HDL cholesterol 33.6. MENTAL STATUS EXAM: The patient is a young, dark-skinned male with eyeglasses wearing a T-shirt and sweatpants, who is clean and well-groomed. He has no abnormal movements. Speech is measured with normal rate, tone, and volume. Mood is euthymic with a full affect. Thought process is linear and goal -directed. Thought content is significant for his desire to be discharged from the hospital. He denies suicidal or homicidal ideations. He denies auditory or visual hallucinations. There is no more evidence of evangelical preoccupation. Insight and judgment are fair given his willingness to follow-up with outpatient treatment. Cognitively, he is awake and alert with what would appear to be an average intellect. DISCHARGE INSTRUCTIONS: A. Medications: He takes Seroquel extended release 500 mg p.o. at bedtime. He also takes Short Carbonate extended release 900 mg p.o. at bedtime. B. Diet: Regular. C. Activities: As tolerated. The patient is a smoker, but is declining the offer of continued nicotine replacement therapy indicating his preference to continue smoking tobacco at this time. In the event that he is interested in quitting, we have provided him with the [facility] Smokers' Quitline which is a toll free number at . There are no laboratory or diagnostic studies pending at the time of discharge. D. Follow-up care: The patient will meet with a new psychotherapist whose name is Jill Howard at [facility]. The appointment is established for May 12 at 8:30 a.m. He will also follow-up with his outpatient psychiatrist, Dr. Sonal Arenas, also at the [facility]. That appointment is set for May 14 at 2:00 p.m. E. Substance abuse follow-up: Nonapplicable. HOSPITAL COURSE - PART A: Reason for admission: The patient is a 32-year-old, Colombian-Bolivian male with a history of bipolar disorder who presents accompanied by the [place] [employer] in handcuffs after inappropriate and disruptive behavior on the campus of [facility]. Upon arrival, [place] [employer] reported that he was on their campus directing attention to himself, "talking like he was God," stating that he was going to "bring hell and damnation down upon the earth." He was acting delusionally and violently, and was stating that he sees spirits walking the earth. In our emergency room, he was inappropriate towards the female ED attending, asking questions such as " how big are your boobs?" and "are you black?" The patient was singing loudly in his room and laughing to himself. At one point, he was placed in restraints and warranted involuntary admission to the Behavioral Science Unit. Here on our unit, he has been inappropriate with female peers, has displayed poor boundaries , and is hyperreligious. We spoke with his sister, Prabhjot, for collateral information and she does note that he has had several stressors recently. He had been working a full-time job at a local [employer], working mostly nighttime hours, but then started working a second job at a [employer] in [place] and seemed to get overwhelmed. She also notes their mother has been hospitalized in [place], [place], for a brain aneurysm and this has been stressful for the entire family. On examination, Michael is grandiose, hyperreligious, telling me that he is special and that God put him on this earth to heal people. He demonstrates several hallmark bipolar bertha symptoms such as distractibility, indiscretion, grandiosity, flight of ideas, increased goal- directed activities, decreased sleep, and intense hyperverbal speech. HOSPITAL COURSE - PART B: Psychiatric treatment rendered: The patient was admitted to the Adult Behavioral Health Unit where he was placed on q.15 minute checks for his own safety. We immediately resumed outpatient medications, including Short extended release 900 mg nightly and Seroquel XR 500 mg nightly. We knew that he had been noncompliant given the fact that his Short level had been negligible in the ER at the time of admission. Gradually with time and medication, the patient came back to a state of euthymia. Progressively, he was better able to participate in groups, receive visitation from family members. We did discover that his mother was discharged from [facility] in [place] and had arrived back at their home. The patient developed better insight, stating that he needs to stay on his medications and needs to stay in regular contact with the outpatient clinic. Prior to this hospitalization, he had no longer been receiving psychotherapy which we felt would be an important addition to his treatment plan. He was agreeable to a referral to one the therapist at [facility]. We were able to collect a Short level later during hospitalization which was therapeutic at 0.67. As the hospitalization came to a close, Michael gained additional privileges such as going outdoors and being on q.30 minute checks. He was never aggressive or displayed any self-harm or harm towards others. At this time, he is appropriately requesting discharge. We believe that Michael has done well here and warrants treatment in a less restrictive setting and his family is in agreement with discharge planning. At this time, Michael will be heading home and we certainly wish him the best for a safe and healthy future. [id number]/[facility] #: [id number] [facility]
== END 2018-05-07 11:00 | disposition home or self-care (01) | DRG 753 ==
LOC: ED 09:37 → BSU 12:19
PROVIDERS: ADMIT Psychiatry & Neurology Psychiatry; ATTEND Psychiatry & Neurology Psychiatry
PROC: GZHZZZZ Group Psychotherapy (ICD-10-PCS; principal; 2018-05-07)
DX: F31.2 Bipolar disorder, current episode manic severe with psychotic features (principal); E73.9 Lactose intolerance, unspecified; F41.9 Anxiety disorder, unspecified; F17.210 Nicotine dependence, cigarettes, uncomplicated; Z91.14 Patient's other noncompliance with medication regimen; Z81.8 Family history of other mental and behavioral disorders; Z78.1 Physical restraint status
CPT/HCPCS: 36415; 80053; 80061; 80178; 80307; 80320; 80329; 81003; 82550; 83036; 83605; 83721; 84443; 85025; 90853; 99222; 99231; 99238; 99285; A9270-GY; G0480; J1200; J2060

== ENCOUNTER 2018-05-22 00:45 | Inpatient (IN) | payer OTHER ==
[2018-05-22] MEDS ORDERED: diPHENhydraMINE PO* 50 MG ONE (00:57)
[2018-05-22] MEDS ORDERED: Haloperidol INJ IV/IM* 5 MG/ML AMP ONE (00:57)
[2018-05-22] MEDS ORDERED: LORazepam INJ* 2 MG/ML 1 ML VIAL ONE (00:57)
--- NOTE | 2018-05-22 00:57 | ED ---
Substance Abuse/Use - HPI Summary HPI Summary: This pt is a 32 y/o male presenting to [facility] via EMS and [place] [employer] on a 9.41. EMS reports the pt was home with his parents when he became aggressive, delusional, and was punching holes in the wall. Pt's parents called the police and they restrained the pt physically. [employer] and EMS brought the pt to the ED. Per RN report, pt was recently discharged from [facility] for the same. HPI IS LIMITED DUE TO LEVEL 5 CAVEAT - uncooperative - History Of Current Complaint Chief Complaint: EDSubstanceAbuse Stated Complaint: 941 Hx Obtained From: EMS Hx From Patient Unobtainable Due To: Other - Level 5 caveat - uncooperative Severity Currently: Severe Character: Stuporous, Other - Delusional Aggravating Factor(s): Other - unknown Alleviating Factor(s): Other - unknown Associated Signs And Symptoms: Other: - aggressive, delusional Related Hx: Prior Psych Admission - Allergies/Home Medications Allergies/Adverse Reactions: Allergies Allergy/AdvReac Type Severity Reaction Status Date / Time No Known Allergies Allergy Verified 04/25/18 01:41 PMH/Surg Hx/FS Hx/Imm Hx GI History: Comment Only: Other GI Disorders - lactose intolerant Sensory History: Reports: Hx Contacts or Glasses Denies: Hx Hearing Aid Opthamlomology History: Reports: Hx Contacts or Glasses Psychiatric History: Reports: Hx Anxiety - only when feeling depressed, Hx Depression, Hx Inpatient Treatment, Hx Community Mental Health Nv, Hx Bipolar Disorder Denies: Hx Eating Disorder, Hx of Violent Episodes Against Others - Surgical History Surgery Procedure, Year, and Place: 15 years ago [facility] [place] nasal fracture repair Hx Anesthesia Reactions: No Infectious Disease History: Denies: Traveled Outside the [place] in Last 30 Days - Family History Known Family History: Positive: Unknown - due to level 5 caveat - uncooperative Negative: Diabetes - Social History Alcohol Use: None Alcohol Amount: 1-2 beer per year Substance Use Type: Reports: None Smoking Status (MU): Light Every Day Tobacco Smoker Type: Cigarettes Amount Used/How Often: 1/2 PPD for last 30 days and used no other tobacco products in last 30 days Length of Time of Smoking/Using Tobacco: 9 years Have You Smoked in the Last Year: Yes Review of Systems - ROS Summary Review of Systems Summary: ROS IS LIMITED DUE TO LEVEL 5 CAVEAT - uncooperative Negative: Fever Psychological: Other - POS: Aggressive, delusional All Other Systems Reviewed And Are Negative: No Physical Exam - Summary Physical Exam Summary: Appearance: Well-appearing, Well-nourished Skin: Warm, dry, no obvious rash Eyes: sclera anicteric, no conjunctival pallor ENT: mucous membranes moist Neck: deferred Respiratory: No signs of respiratory distress Cardiovascular: Appears well perfused, pulses are nml Abdomen: deferred Musculoskeletal: Moving all 4 extremities without obvious discomfort Neurological: Awakeand alert, mentation is normal, speech is fluent and appropriate Psychiatric: affect is normal, does not appear anxious or depressed Triage Information Reviewed: Yes Vital Signs On Initial Exam: Initial Vitals Temp Pulse Resp BP Pulse Ox 97.2 F 117 19 164/96 94 05/22/18 00:57 05/22/18 00:57 05/22/18 00:57 05/22/18 00:57 05/22/18 00:57 Vital Signs Reviewed: Yes Completion Of Physical Exam Limited Due To: Level 5 - uncooperative Diagnostics - Laboratory Result Diagrams: 05/22/18 01:44 05/22/18 01:44 Lab Statement: Any lab studies that have been ordered have been reviewed, and results considered in the medical decision making process. Course/Dx - Course Course Of Treatment: Pt will be signed out to Dr. Cruz, pending disposition, awaiting [facility]HE. - Diagnoses Differential Diagnosis/HQI/PQRI: Positive: Acute Psychosis Provider Diagnoses: Acute psychosis Discharge - Sign-Out/Discharge Documenting (check all that apply): Sign-Out Patient Signing out patient TO: Cristian Cruz Receiving patient FROM: Faraz Garcia - Discharge Plan [place] [place]illing Disposition and Condition Disposition: Psychiatric [place] [facility] [place] - Attestation Statements Document Initiated by Scribe: Yes Documenting Scribe: Sarina Singer Provider For Whom [place] is Documenting (Include Credential): Faraz Garcia MD Scribe Attestation: Sarina Hamlin, valerianoed for Faraz Garcia MD on 05/23/18 at 0152. Scribe Documentation Reviewed: Yes Provider Attestation: The documentation as recorded by the Sarina dasilva accurately reflects the service I personally performed and the decisions made by me, Faraz Garcia MD
[2018-05-22 02:03] LABS: ABS Basophils 0 10^3/ul (0-0.2); ABS Eosinophils 0.2 10^3/ul (0-0.6); ABS Lymphocytes 0.9 10^3/ul (1.0-4.8); ABS Monocytes 0.6 10^3/ul (0-0.8); ABS Neutrophils 9.6 10^3/ul (1.5-7.7); ABS Nucleated RBC 0 10^3/ul; Eosinophil % 1.7 % (0-6); Hematocrit 44 % (42-52); Hemoglobin 14.1 g/dl (14.0-18.0); Lymphocyte % 7.9 % (25-47); Mean Corpuscular HGB Conc 32 g/dl (31-36); Mean Corpuscular Hemoglobin 28 pg (27-31); Mean Corpuscular Volume 86 fL (80-94); Mean Platelet Volume 7.3 um3 (7.4-10.4); Nucleated Red Blood Cells % 0; Platelet Count 325 10^3/ul (150-450); Red Blood Count 5.05 10^6/ul (4.00-5.40); Red Cell Distribution Width 14 % (10.5-15); White Blood Count 11.4 10^3/ul (3.5-10.8)
[2018-05-22 02:25] LABS: EGFR Non-African American 116.1 (>60)
[2018-05-22] MEDS ORDERED: Mouth Piece, Nicotine* 1 EACH CARTRIDGE ONE (09:00)
[2018-05-22] MEDS ORDERED: Nicotine Inhaler* 10 MG AMP ONE (09:01)
[2018-05-22] MEDS: Mouth Piece, Nicotine* 1 EACH CARTRIDGE INH PRN ×2 (09:08→20:15)
[2018-05-22] MEDS: Nicotine Inhaler* 10 MG AMP INH PRN ×2 (09:08→20:15)
[2018-05-22] MEDS ORDERED: Al Hydrox/Mg Hydrox/Simet LIQ* 30 ML UDC PO PRN (12:53)
[2018-05-22] MEDS ORDERED: Acetaminophen TAB* 325 MG PO PRN (12:53)
--- NOTE | 2018-05-22 13:05 | PN ---
Progress Note - Progress Note Date of Service: 05/22/18 Note: SIGN-OUT TO DR. CRUZ FROM DR. SALINAS AT [facility] PENDING [facility]. Per MH counselor: Pt will be involuntarily admitted. DX: BIPOLAR MANIC. DISPO: ADMIT TO [facility] This is vidya, Angelina Jackson, documenting for attending Dr. Cristian Cruz MD.
[2018-05-22 13:10] LABS: Lithium 0.31 mmol/L (0.6-1.2)
--- NOTE | 2018-05-22 18:28 | PN ---
ED Flex Patient Progress Note Subjective: This is a 32 year-old M who is pending psychiatric eval secondary to dellusions and hyper. Dx of bipolar d/o w/ h/o mania . Pt offers no complaints at this time. 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 General NAD, alert - distorted orientation Heart: S1/S2 Lungs: CTA, breathing easily INTEG: well perfused - dry, warm CHINYERE: up walking about w/o restriction Laboratory: Current laboratory results documented below. Assessment: 1) MH 2) Nicotine dependence Plan: 1) Pending psychiatric. Will follow up daily __while in ED___. 2) nicotine inhaler Vital Signs Temp Pulse Resp BP Pulse Ox 97.2 F 76 18 100/55 98 05/22/18 16:43 05/22/18 16:43 05/22/18 16:43 05/22/18 16:43 05/22/18 16:43 Lab Results - Entire Visit 05/22/18 05/22/18 05/22/18 05:45 01:44 01:44 WBC 11.4 H RBC 5.05 Hgb 14.1 Hct 44 MCV 86 MCH 28 MCHC 32 RDW 14 Plt Count 325 MPV 7.3 L Neut % (Auto) 84.5 H Lymph % (Auto) 7.9 L Zavala % (Auto) 5.5 Eos % (Auto) 1.7 Baso % (Auto) 0.4 Absolute Neuts (auto) 9.6 H Absolute Lymphs (auto) 0.9 L Absolute Monos (auto) 0.6 Absolute Eos (auto) 0.2 Absolute Basos (auto) 0 Absolute Nucleated RBC 0 Nucleated RBC % 0 Sodium 139 Potassium 3.8 Chloride 107 Carbon Dioxide 24 Anion Gap 8 BUN 12 Creatinine 0.78 Est GFR ( Amer) 140.5 Est GFR (Non-Af Amer) 116.1 BUN/Creatinine Ratio 15.4 Glucose 100 Calcium 8.8 Total Bilirubin 0.50 AST 18 ALT 22 Alkaline Phosphatase 69 Total Protein 6.7 Albumin 4.0 Globulin 2.7 Albumin/Globulin Ratio 1.5 Urine Opiates Screen None detected Ur Barbiturates Screen None detected Ur Phencyclidine Scrn None detected Ur Amphetamines Screen None detected U Benzodiazepines Scrn None detected [place] 0.31 L Urine Cocaine Screen None detected U Cannabinoids Screen None detected Serum Alcohol < 10
[2018-05-22] MEDS: QUEtiapine XR TAB* 200 MG PO SCH (20:16)
[2018-05-22] MEDS: Lithium Carbonate ER* 450 MG TAB.ER PO SCH (20:16)
[2018-05-22] MEDS: QUEtiapine XR TAB* 50 MG PO SCH (20:16)
[2018-05-23] MEDS: Nicotine Inhaler* 10 MG AMP INH PRN ×5 (06:39→21:51)
--- NOTE | 2018-05-23 14:12 | HP ---
HISTORY AND PHYSICAL: DATE OF ADMISSION: 05/22/18 IDENTIFYING DATA: Michael is a 32-year-old mentally disabled Citizen Of [place] male with known hist ory of bipolar disorder and at least 5 prior psychiatric hospitalizations here and other places, who was rehospitalized days after his discharge from here. CHIEF COMPLAINT: "My dad is an a--h--e." HISTORY OF PRESENT ILLNESS: Michael was last hospitalized on this unit on 12/19/17 almost under chepe lar circumstances where he was extremely manic. This time, Michael reports that after his discharge from here he went home and was minding his business, which apparently was too much for his dad to gibson dle. Michael reports that he started cleaning the entire house and possibly made it worse and when jose is dad came back from work, his dad was asking what he was doing in his house. Michael got upset nadira use he expected a thank you from his dad because he was doing a favor to his dad. They got into an a rgument and then Michael got really aggressive to the point that he started punching the wall and mad e holes in the [place]. At that point, his dad called police who came and brought him to the emergency room. 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 He has a lot of other t alents that he wants to sell to the [employer] and wants to make billions of dollars. He is completely distractible with flight of ideas, increased goal-directed activities, and increased energ y level. He does not believe that he has any problem and should not be called bipolar. He thinks he just is a talented individual that others are jealous about. PAST PSYCHIATRIC HISTORY: Remarkable for 4 prior psychiatric hospitalizations both here and [facility] in [place]. His last hospitalization here being on 12/19/17. In the past, he was treated with lithium and Seroquel and he continues to be on lithium and Seroquel; however, it is unknown how compliant he is when he is outside. He was seen by Dr. Arenas at [facility]; however, there is no report that he saw her his discharge from this hospital last time. SUBSTANCE ABUSE HISTORY: Insignificant because he denies using any illicit drugs or drinking. PAST MEDICAL HISTORY: Michael is a healthy 32-year-old with no known acute or chronic physical healt h conditions. ALLERGIES: Unknown. FAMILY HISTORY: Significant for a diagnosis of bipolar disorder in his older sister. PERSONAL AND SOCIAL HISTORY: As far as known, Michael resides with his parents locally. He graduate d from high school and has a very sporadic work history. 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 He is single and ther e is no record of him having any children. Also, there is no report of him being involved in any leg al problem. REVIEW OF SYSTEMS: Did not reveal any issues with any of the vital organs or physical health issues. PHYSICAL EXAMINATION GENERAL APPEARANCE: Michael does not appear to be in any physical distress at the time of evaluation . Michael is appropriately dressed, fairly groomed with fair personal hygiene. VITAL SIGNS: His vital signs this morning show a blood pressure of 138/77, pulse 88, temperature 98. 5, respirations 16, O2 sat 100%. Although he punched a wall at his dad's residence, he denies any pa in or tenderness of his hands. HEENT: Head is atraumatic, normocephalic. NECK: Supple with midline trachea. No lymphadenopathy or thyromegaly. CHEST: Clear to auscultation bilaterally, although he was coughing during the examination. CARDIAC: S1 and S2 only. No murmurs or rubs audible. ABDOMEN: Soft, nontender without any organomegaly. Bowel sounds positive in all quadrants. MUSCULOSKELETAL: Within normal limits with full range of movement of all the joints. Pulse positive in all 4 extremities. NEUROLOGICAL: Exam was within normal limits with grossly intact cranial nerves II through XII. MENTAL STATUS EXAMINATION: Appropriately dressed, fairly groomed Citizen [place] male who appears his sta susy age. He is alert and oriented to time, place, and person. Speech is pressured with some tangenti ality. Describes his mood as great and he appears to be euphoric. Thought process is tangential and circumstantial. 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 He also believes that he can sell his product in the [employer] industry, billions of dollars worth. He denies any perceptual disturbances. Also denies any ac tive suicidal or homicidal ideation. His memory functions are intact in all spheres. Intelligence a ppears to be average as evidenced by his vocabulary and fund of knowledge. Insight and judgment impbenito madsenxuan. SUMMARY: This is a 32-year-old Citizen [place] male with history of bipolar disorder with repeate d psychiatric hospitalizations either because of noncompliance with medications or not following [facility] the discharge recommendations, is being rehospitalized because of relapse of manic symptoms. TREATMENT PLAN: For now, Michael needs hospitalization for rapid stabilization of manic symptoms. H is code status will remain full. Supportive milieu, individual, and group therapy will be initiated. For now, I am going to continue him on his outpatient medications and adjust the doses to bring the lithium level to therapeutic range. My recommendation will be to consider long acting injectable to assure compliance. The other recommendation will be to transfer him to state facility if he does no t stabilize within next 2 weeks. [id number]/[facility] #: [id number]
[2018-05-23] MEDS: Nicotine GUM* 2 MG PO PRN ×2 (16:19→21:51)
[2018-05-23] MEDS: QUEtiapine XR TAB* 200 MG PO SCH ×2 (17:10→21:01)
[2018-05-23] MEDS: Lithium Carbonate ER* 450 MG TAB.ER PO SCH ×2 (17:10→21:01)
[2018-05-23] MEDS: QUEtiapine XR TAB* 50 MG PO SCH ×2 (17:11→21:01)
[2018-05-23] MEDS ORDERED: chlorproMAZINE TAB* 50 MG PO PRN (20:00)
[2018-05-23] MEDS ORDERED: diPHENhydraMINE PO* 50 MG PO PRN (20:00)
[2018-05-23] MEDS ORDERED: chlorproMAZINE TAB* 50 MG ONE (20:06)
[2018-05-23] MEDS ORDERED: diPHENhydraMINE PO* 50 MG ONE (20:06)
[2018-05-24] MEDS: Nicotine Inhaler* 10 MG AMP INH PRN ×2 (09:30→20:38)
[2018-05-24] MEDS: Nicotine GUM* 2 MG PO PRN (09:30)
[2018-05-24] MEDS: Lithium Carbonate ER* 450 MG TAB.ER PO SCH (20:37)
[2018-05-24] MEDS: QUEtiapine XR TAB* 200 MG PO SCH (20:37)
[2018-05-24] MEDS: QUEtiapine XR TAB* 50 MG PO SCH (20:37)
[2018-05-25] MEDS: Nicotine GUM* 2 MG PO PRN ×2 (06:27→19:06)
[2018-05-25] MEDS: Nicotine Inhaler* 10 MG AMP INH PRN ×3 (06:27→19:06)
--- NOTE | 2018-05-25 12:10 | PN ---
Subjective - Subjective Date of Service: 05/25/18 Service Type: 97005 Hosp care 15 min low complexity Subjective: Michael remains hyperverbal and hyperkinetic, pacing hallways; intrusive with peers, somewhat grandiose. He is willing to switch to paliperidone therapy in order to initiate the GUILLEN version of this to improve adherence in the community. He denies SI or HI. Objective - Appearance Appearance: Well Developed/Nourished Dysmorphic Features: No Hygiene: Normal Grooming: Fairly Well Kept - Behavior Psychomotor Activities: Abnormal-Increased Exhibits Abnormal Movement: No - Attitude and Relatedness Attitude and Relatedness: Cooperative Eye Contact: Good - Speech Quality: Pressured Latencies: Short Quantity: Copious - Mood Patient's Decription of Mood: "Great" - Affect Observed Affect: Expansive Affect Consistent with: Euphoria - Thought Process Patient's Thought Process: Tangential Thought Content: Yes Paranoid Ideation, No Passive Wish, No Suicidal Planning, No Homicidal Ideation - Sensorium Experiencing Hallucinations: No, Sensorium is Clear Type of Hallucinations: Visual: No, Auditory: No, Command: No - Level of Consciousness Level of Consciousness: Alert Orientation: Yes Intact, Yes Orientated to Time, Yes Orientated to Place, Yes Orientated to Person - Impulse Control Impulse Control: Poor - Insight and Judgement Insight and Judgement: Impaired - Group Participation Particating in Group Activities: No - Medication Management Medication Management Adherence: Yes Assessment - Assessment Merits Inpatient Hospitalization: For Immediate Safety, For Stabilization Inpatient DSM-V Dx: F31.13 Clinical Impression: 32 y.o. single, [place]and[place] male with a history of bipolar affective disorder, just [facility], who represents via the police on legal status with symptoms of destructive, grandiose, manic behaviors at his parents' house. Plan - Plan Treatment Plan: Name: MICHAEL THOMPSON Birthdate: 1985 [id number] The patient's lithium ER 900mg PO qhs has been resumed. We will discontinue quetiapine and start a trial of paliperidone 6mg PO qhs, in advance of starting him on Invega Sustenna once monthly GUILLEN. Continue to treat on the inpatient unit. Continued Medication Management: Different Medication Medications: Current Medications Acetaminophen (Tylenol Tab*) 650 mg PO Q4H PRN PRN Reason: for pain; or Temp >101 F Al Hydrox/Mg Hydrox/Simethicone (Maalox Plus*) 30 ml PO Q4H PRN PRN Reason: INDIGESTION Chlorpromazine HCl (Thorazine Tab*) 50 mg PO ONCE PRN PRN Reason: AGITATION Last Admin: 05/23/18 20:00 Dose: 50 mg Device (Nicotine Mouth Piece*) 1 each INH .USE WITH NICOTROL PRN PRN Reason: CRAVING Last Admin: 05/22/18 20:15 Dose: 1 each Diphenhydramine HCl (Benadryl Po*) 50 mg PO ONCE PRN PRN Reason: AGITATION Last Admin: 05/23/18 20:00 Dose: 50 mg [place] Carbonate ([place] Carbonate Er Tab*) 900 mg PO 2100 NATANAEL Last Admin: 05/24/18 20:37 Dose: 900 mg Nicotine (Nicotine Inhaler*) 10 mg INH Q2H PRN PRN Reason: CRAVING Last Admin: 05/25/18 06:27 Dose: 10 mg Nicotine Polacrilex (Nicotine Gum*) 2 mg PO Q2H PRN PRN Reason: CRAVING Last Admin: 05/25/18 06:27 Dose: 2 mg Paliperidone (Invega Er Tab*) 6 mg PO BEDTIME NATANAEL - Discharge Plan Discharge Plan: Inpatient Hospitalization Lab Results - Lab Results Lab Results: 05/22/18 05/23/18 05/23/18 01:44 07:12 07:12 Sodium 139 Potassium 3.8 Chloride 107 Carbon Dioxide 24 Anion Gap 8 BUN 12 Creatinine 0.78 Est GFR ( Amer) 140.5 Est GFR (Non-Af Amer) 116.1 BUN/Creatinine Ratio 15.4 Glucose 100 Hemoglobin A1c 5.4 Calcium 8.8 Total Bilirubin 0.50 AST 18 ALT 22 Alkaline Phosphatase 69 Total Protein 6.7 Albumin 4.0 Globulin 2.7 Albumin/Globulin Ratio 1.5 Triglycerides 190 Cholesterol 165 LDL Cholesterol 91 HDL Cholesterol 35.9 [place] 0.31 L Serum Alcohol < 10
[2018-05-25] MEDS ORDERED: Paliperidone ER TAB* 6 MG TAB.ER PO SCH (21:00)
[2018-05-25] MEDS: Lithium Carbonate ER* 450 MG TAB.ER PO SCH (21:05)
[2018-05-26] MEDS: Nicotine GUM* 2 MG PO PRN ×4 (06:25→20:55)
[2018-05-26] MEDS: Nicotine Inhaler* 10 MG AMP INH PRN ×4 (06:25→20:55)
--- NOTE | 2018-05-26 10:48 | PN ---
Subjective - Subjective Date of Service: 05/26/18 Service Type: 69858 Hosp care 15 min low complexity Subjective: Michael is tolerating the first dose of Invega oral that he got last night without side effects. He remains agreeable with the GUILLEN formulation. His behavior is improving but remains somewhat grandiose, saying "Oh yes...I am talented" after I compliment his artwork. He denies SI or HI. Objective - Appearance Appearance: Well Developed/Nourished Dysmorphic Features: No Hygiene: Normal Grooming: Well Kept - Behavior Psychomotor Activities: Abnormal-Increased Exhibits Abnormal Movement: No - Attitude and Relatedness Attitude and Relatedness: Cooperative Eye Contact: Good - Speech Quality: Pressured Latencies: Short Quantity: Copious - Mood Patient's Decription of Mood: "Great" - Affect Observed Affect: Expansive Affect Consistent with: Euphoria - Thought Process Patient's Thought Process: Coherent, Tangential Thought Content: Yes Paranoid Ideation, No Passive Wish, No Suicidal Planning, No Homicidal Ideation - Sensorium Experiencing Hallucinations: No, Sensorium is Clear Type of Hallucinations: Visual: No, Auditory: No, Command: No - Level of Consciousness Level of Consciousness: Alert Orientation: Yes Intact, Yes Orientated to Time, Yes Orientated to Place, Yes Orientated to Person - Impulse Control Impulse Control: Poor - Insight and Judgement Insight and Judgement: Impaired - Group Participation Particating in Group Activities: Yes - Medication Management Medication Management Adherence: Yes Assessment - Assessment Merits Inpatient Hospitalization: For Immediate Safety, For Stabilization Inpatient DSM-V Dx: F31.13 Clinical Impression: 32 y.o. single, American-[place] male with a history of bipolar affective disorder, just discharged [facility] this month from the [facility], who represents via the police on legal status with symptoms of destructive, grandiose, manic behaviors at his parents' house. Plan - Plan Treatment Plan: Name: MICHAEL THOMPSON Birthdate: 1985 [id number] The patient's lithium ER 900mg PO qhs has been resumed. We have discontinued quetiapine and started a trial of paliperidone 6mg PO qhs, in advance of starting him on Invega Sustenna once monthly GUILLEN. Tonight well increase paliperidone to 9mg and administer the shot tomorrow. Continue to treat on the inpatient unit. Continued Medication Management: Different Medication Medications: Current Medications Acetaminophen (Tylenol Tab*) 650 mg PO Q4H PRN PRN Reason: for pain; or Temp >101 F Al Hydrox/Mg Hydrox/Simethicone (Maalox Plus*) 30 ml PO Q4H PRN PRN Reason: INDIGESTION Chlorpromazine HCl (Thorazine Tab*) 50 mg PO ONCE PRN PRN Reason: AGITATION Last Admin: 05/23/18 20:00 Dose: 50 mg Device (Nicotine Mouth Piece*) 1 each INH .USE WITH NICOTROL PRN PRN Reason: CRAVING Last Admin: 05/22/18 20:15 Dose: 1 each Diphenhydramine HCl (Benadryl Po*) 50 mg PO ONCE PRN PRN Reason: AGITATION Last Admin: 05/23/18 20:00 Dose: 50 mg [place] Carbonate ([place] Carbonate Er Tab*) 900 mg PO 2100 NATANAEL Last Admin: 05/25/18 21:05 Dose: 900 mg Nicotine (Nicotine Inhaler*) 10 mg INH Q2H PRN PRN Reason: CRAVING Last Admin: 05/26/18 06:25 Dose: 10 mg Nicotine Polacrilex (Nicotine Gum*) 2 mg PO Q2H PRN PRN Reason: CRAVING Last Admin: 05/26/18 06:25 Dose: 2 mg - Discharge Plan Discharge Plan: Inpatient Hospitalization
[2018-05-26] MEDS: Lithium Carbonate ER* 450 MG TAB.ER PO SCH (20:49)
[2018-05-26] MEDS ORDERED: Paliperidone ER TAB* 9 MG TAB.ER PO SCH (21:00)
[2018-05-27] MEDS: Nicotine GUM* 2 MG PO PRN ×5 (06:44→20:14)
[2018-05-27] MEDS: Nicotine Inhaler* 10 MG AMP INH PRN ×5 (06:44→20:14)
[2018-05-27] MEDS ORDERED: Paliperidone SUSTENNA* 234 MG/1.5 ML IM ONE (13:32)
--- NOTE | 2018-05-27 13:47 | PN ---
Subjective - Subjective Date of Service: 05/27/18 Service Type: 14610 Hosp care 15 min low complexity Subjective: Michael is tolerating oral paliperidone well and agreeable with starting the GUILLEN formulation today. His behavior is more calm and reasonable. He did show his phone to staff and had taken several photos of what appeared to be firearms. Upon closer inspection by this clinician and the unit SW, Dinorah Araiza , the weapons are BB guns and he denies ownership or access to more formidable firearms. He denies SI or HI. Objective - Appearance Appearance: Well Developed/Nourished Dysmorphic Features: No Hygiene: Normal Grooming: Well Kept - Behavior Psychomotor Activities: Abnormal-Increased Exhibits Abnormal Movement: No - Attitude and Relatedness Attitude and Relatedness: Cooperative Eye Contact: Good - Speech Quality: Pressured Latencies: Short Quantity: Copious - Mood Patient's Decription of Mood: "Great" - Affect Observed Affect: Expansive Affect Consistent with: Euphoria - Thought Process Patient's Thought Process: Tangential Thought Content: Yes Paranoid Ideation, No Passive Wish, No Suicidal Planning, No Homicidal Ideation - Sensorium Experiencing Hallucinations: No, Sensorium is Clear Type of Hallucinations: Visual: No, Auditory: No, Command: No - Level of Consciousness Level of Consciousness: Alert Orientation: Yes Intact, Yes Orientated to Time, Yes Orientated to Place, Yes Orientated to Person - Impulse Control Impulse Control: Tenuous - Insight and Judgement Insight and Judgement: Fair - Group Participation Particating in Group Activities: Yes - Medication Management Medication Management Adherence: Yes Assessment - Assessment Merits Inpatient Hospitalization: For Immediate Safety, For Stabilization Inpatient DSM-V Dx: F31.13 Clinical Impression: 32 y.o. single, [place]-Cyp[place] male with a history of bipolar affective disorder, just discharged earlier this month from the [facility], who represents via the police on legal status with symptoms of destructive, grandiose, manic behaviors at his parents' house. Plan - Plan Treatment Plan: Name: MICHAEL THOMPSON Birthdate: 1985 [id number] The patient's lithium ER 900mg PO qhs has been resumed. We have discontinued quetiapine and started a trial of paliperidone 9mg PO qhs, in advance of starting him on Invega Sustenna once monthly GUILLEN. He's tolerating this well, so tonight we'll start paliperidone Sustenna 234mg IM qmonthly. Continue to treat on the inpatient unit. Continued Medication Management: Different Medication Medications: Current Medications Acetaminophen (Tylenol Tab*) 650 mg PO Q4H PRN PRN Reason: for pain; or Temp >101 F Al Hydrox/Mg Hydrox/Simethicone (Maalox Plus*) 30 ml PO Q4H PRN PRN Reason: INDIGESTION Chlorpromazine HCl (Thorazine Tab*) 50 mg PO ONCE PRN PRN Reason: AGITATION Last Admin: 05/23/18 20:00 Dose: 50 mg Device (Nicotine Mouth Piece*) 1 each INH .USE WITH NICOTROL PRN PRN Reason: CRAVING Last Admin: 05/22/18 20:15 Dose: 1 each Diphenhydramine HCl (Benadryl Po*) 50 mg PO ONCE PRN PRN Reason: AGITATION Last Admin: 05/23/18 20:00 Dose: 50 mg [place] Carbonate ([place] Carbonate Er Tab*) 900 mg PO 2100 NATANAEL Last Admin: 05/26/18 20:49 Dose: 900 mg Nicotine (Nicotine Inhaler*) 10 mg INH Q2H PRN PRN Reason: CRAVING Last Admin: 05/27/18 12:18 Dose: 10 mg Nicotine Polacrilex (Nicotine Gum*) 2 mg PO Q2H PRN PRN Reason: CRAVING Last Admin: 05/27/18 12:18 Dose: 2 mg Paliperidone Palmitate (Invega Sustenna*) 234 mg IM ONCE ONE Stop: 05/27/18 13:33 - Discharge Plan Discharge Plan: Inpatient Hospitalization
--- NOTE | 2018-05-27 16:49 | PN ---
[facility]: Group Therapy Note - Service Type Service Type: [id number] Group Psychotherapy - Medication Education Group: Patient joined group and was intermittently in room. Patient asked questions that were not particularly on topic. Patient receptive to redirection when monopolizing group.
[2018-05-27] MEDS: Lithium Carbonate ER* 450 MG TAB.ER PO SCH (20:14)
--- NOTE | 2018-05-28 10:55 | PN ---
Subjective - Subjective Date of Service: 05/28/18 Service Type: 80190 Hosp care 15 min low complexity Subjective: Ro accepted the initial 234mg dose of paliperidone IM therapy yesterday afternoon and denies any side effects thus far. He remains hypomanic, roaming the halls and intrusively interacting with staff and peers. He denies SI or HI. Objective - Appearance Appearance: Well Developed/Nourished Dysmorphic Features: No Hygiene: Normal Grooming: Fairly Well Kept - Behavior Psychomotor Activities: Abnormal-Increased Exhibits Abnormal Movement: No - Attitude and Relatedness Attitude and Relatedness: Cooperative Eye Contact: Good - Speech Quality: Pressured Latencies: Short Quantity: Copious - Mood Patient's Decription of Mood: "Great" - Affect Observed Affect: Expansive Affect Consistent with: Euphoria - Thought Process Patient's Thought Process: Tangential Thought Content: No Passive Wish, No Suicidal Planning, No Homicidal Ideation, No Paranoid Ideation - Sensorium Experiencing Hallucinations: No, Sensorium is Clear Type of Hallucinations: Visual: No, Auditory: No, Command: No - Level of Consciousness Level of Consciousness: Alert Orientation: Yes Intact, Yes Orientated to Time, Yes Orientated to Place, Yes Orientated to Person - Impulse Control Impulse Control: Poor - Insight and Judgement Insight and Judgement: Impaired - Group Participation Particating in Group Activities: Yes - Medication Management Medication Management Adherence: Yes Assessment - Assessment Merits Inpatient Hospitalization: For Immediate Safety, For Stabilization Inpatient DSM-V Dx: F31.13 Clinical Impression: 32 y.o. single, [place] male with a history of bipolar affective disorder, just [facility], who represents via the police on legal status with symptoms of destructive, grandiose, manic behaviors at his parents' house. Plan - Plan Treatment Plan: Name: MANOJ THOMPSON Birthdate: 1985 [id number] The patient's lithium ER 900mg PO qhs has been resumed. We have discontinued quetiapine and started a trial of paliperidone Sustenna 234mg IM qmonthly. Will administer booster dose of 156mg next Friday and target discharge for sometime next week. Continue to treat on the inpatient unit. Continued Medication Management: Different Medication Medications: Current Medications Acetaminophen (Tylenol Tab*) 650 mg PO Q4H PRN PRN Reason: for pain; or Temp >101 F Al Hydrox/Mg Hydrox/Simethicone (Maalox Plus*) 30 ml PO Q4H PRN PRN Reason: INDIGESTION Chlorpromazine HCl (Thorazine Tab*) 50 mg PO ONCE PRN PRN Reason: AGITATION Last Admin: 05/23/18 20:00 Dose: 50 mg Device (Nicotine Mouth Piece*) 1 each INH .USE WITH NICOTROL PRN PRN Reason: CRAVING Last Admin: 05/22/18 20:15 Dose: 1 each Diphenhydramine HCl (Benadryl Po*) 50 mg PO ONCE PRN PRN Reason: AGITATION Last Admin: 05/23/18 20:00 Dose: 50 mg [place] Carbonate ([place] Carbonate Er Tab*) 900 mg PO 2100 NATANAEL Last Admin: 05/27/18 20:14 Dose: 900 mg Nicotine (Nicotine Inhaler*) 10 mg INH Q2H PRN PRN Reason: CRAVING Last Admin: 05/27/18 20:14 Dose: 10 mg Nicotine Polacrilex (Nicotine Gum*) 2 mg PO Q2H PRN PRN Reason: CRAVING Last Admin: 05/27/18 20:14 Dose: 2 mg - Discharge Plan Discharge Plan: Inpatient Hospitalization
[2018-05-28] MEDS: Nicotine Inhaler* 10 MG AMP INH PRN ×5 (11:12→21:55)
[2018-05-28] MEDS: Mouth Piece, Nicotine* 1 EACH CARTRIDGE INH PRN (11:12)
[2018-05-28] MEDS: Nicotine GUM* 2 MG PO PRN ×5 (11:13→21:55)
[2018-05-28] MEDS: Lithium Carbonate ER* 450 MG TAB.ER PO SCH (20:29)
[2018-05-29] MEDS: Nicotine Inhaler* 10 MG AMP INH PRN ×5 (06:32→20:16)
[2018-05-29] MEDS: Nicotine GUM* 2 MG PO PRN ×5 (06:32→20:16)
--- NOTE | 2018-05-29 12:24 | PN ---
Subjective - Subjective Date of Service: 05/29/18 Service Type: [id number] Hosp care 15 min low complexity Subjective: Ro is hyperactive and overtalkative but with reasonable interpersonal limits. He denies SI or HI and is tolerating the shot of Invega Sustena well. Objective - Appearance Appearance: Well Developed/Nourished Dysmorphic Features: No Hygiene: Normal Grooming: Well Kept - Behavior Psychomotor Activities: Abnormal-Increased Exhibits Abnormal Movement: No - Attitude and Relatedness Attitude and Relatedness: Cooperative Eye Contact: Good - Speech Quality: Pressured Latencies: Short Quantity: Copious - Mood Patient's Decription of Mood: "Great" - Affect Observed Affect: Expansive Affect Consistent with: Euphoria - Thought Process Patient's Thought Process: Tangential Thought Content: No Passive Wish, No Suicidal Planning, No Homicidal Ideation, No Paranoid Ideation - Sensorium Experiencing Hallucinations: No, Sensorium is Clear Type of Hallucinations: Visual: No, Auditory: No, Command: No - Level of Consciousness Level of Consciousness: Alert Orientation: Yes Intact, Yes Orientated to Time, Yes Orientated to Place, Yes Orientated to Person - Impulse Control Impulse Control: Tenuous - Insight and Judgement Insight and Judgement: Fair - Group Participation Particating in Group Activities: Yes - Medication Management Medication Management Adherence: Yes Assessment - Assessment Merits Inpatient Hospitalization: For Immediate Safety, For Stabilization Inpatient DSM-V Dx: F31.13 Clinical Impression: 32 y.o. single, Bangladeshi-[place]anese male with a history of bipolar affective disorder, just discharged earlier this month from the [facility], who represents via the police on legal status with symptoms of destructive, grandiose, manic behaviors at his parents' house. Plan - Plan Treatment Plan: Name: MANOJ THOMPSON Birthdate: 1985 [id number] The patient's lithium ER 900mg PO qhs has been resumed. We have discontinued quetiapine and started a trial of paliperidone Sustenna 234mg IM qmonthly. Will administer booster dose of 156mg next Friday and target discharge for sometime next week. Continue to treat on the inpatient unit. Continued Medication Management: Different Medication Medications: Current Medications Acetaminophen (Tylenol Tab*) 650 mg PO Q4H PRN PRN Reason: for pain; or Temp >101 F Al Hydrox/Mg Hydrox/Simethicone (Maalox Plus*) 30 ml PO Q4H PRN PRN Reason: INDIGESTION Chlorpromazine HCl (Thorazine Tab*) 50 mg PO ONCE PRN PRN Reason: AGITATION Last Admin: 05/23/18 20:00 Dose: 50 mg Device (Nicotine Mouth Piece*) 1 each INH .USE WITH NICOTROL PRN PRN Reason: CRAVING Last Admin: 05/28/18 11:12 Dose: 1 each Diphenhydramine HCl (Benadryl Po*) 50 mg PO ONCE PRN PRN Reason: AGITATION Last Admin: 05/23/18 20:00 Dose: 50 mg [place] Carbonate ([place] Carbonate Er Tab*) 900 mg PO 2100 NATANAEL Last Admin: 05/28/18 20:29 Dose: 900 mg Nicotine (Nicotine Inhaler*) 10 mg INH Q2H PRN PRN Reason: CRAVING Last Admin: 05/29/18 11:04 Dose: 10 mg Nicotine Polacrilex (Nicotine Gum*) 2 mg PO Q2H PRN PRN Reason: CRAVING Last Admin: 05/29/18 11:04 Dose: 2 mg Paliperidone Palmitate (Invega Sustenna*) 156 mg IM ONCE ONE Stop: 06/01/18 08:01 - Discharge Plan Discharge Plan: Inpatient Hospitalization Lab Results - Lab Results Lab Results: 05/29/18 07:39 [place] 0.55 L
[2018-05-29] MEDS: Lithium Carbonate ER* 450 MG TAB.ER PO SCH (20:15)
[2018-05-30] MEDS: Nicotine GUM* 2 MG PO PRN ×7 (06:34→21:11)
[2018-05-30] MEDS: Nicotine Inhaler* 10 MG AMP INH PRN ×7 (06:34→21:11)
[2018-05-30] MEDS: Lithium Carbonate ER* 450 MG TAB.ER PO SCH (19:56)
[2018-05-31] MEDS: Nicotine GUM* 2 MG PO PRN ×6 (05:45→20:20)
[2018-05-31] MEDS: Nicotine Inhaler* 10 MG AMP INH PRN ×6 (05:45→20:20)
[2018-05-31] MEDS: Lithium Carbonate ER* 450 MG TAB.ER PO SCH (20:20)
[2018-06-01] MEDS: Nicotine Inhaler* 10 MG AMP INH PRN ×6 (06:28→23:02)
[2018-06-01] MEDS: Nicotine GUM* 2 MG PO PRN ×6 (06:28→23:02)
[2018-06-01] MEDS ORDERED: Paliperidone SUSTENNA* 156 MG/1 ML IM ONE (08:00)
--- NOTE | 2018-06-01 12:46 | PN ---
Subjective - Subjective Date of Service: 06/01/18 Service Type: [id number] Hosp care 15 min low complexity Subjective: Michael received his booster dose of Invega Sustena this morning and is tolerating it well so far. He is eager for discharge and asks repeatedly when this might occur. Unfortunately, his staff notes from over the weekend are not favorable. He got into verbal spats with two separate staff members, through a book across the milieu, was loud, intrusive and name-calling towards peers, calling one suicidal peer a "bridge-jumper" and another peer with substance misuse a "meth-head." He was also described as hyperreligious, trying to convert peers to Amish and making grandiose statements such as "I'm fighting for God!" Objective - Appearance Appearance: Well Developed/Nourished Dysmorphic Features: No Hygiene: Normal Grooming: Well Kept - Behavior Psychomotor Activities: Abnormal-Increased Exhibits Abnormal Movement: No - Attitude and Relatedness Attitude and Relatedness: Cooperative Eye Contact: Fair - Speech Quality: Pressured Latencies: Short Quantity: Copious - Affect Observed Affect: Expansive Affect Consistent with: Euphoria - Thought Process Patient's Thought Process: Tangential Thought Content: Yes Paranoid Ideation, No Passive Wish, No Suicidal Planning, No Homicidal Ideation - Sensorium Experiencing Hallucinations: No, Sensorium is Clear Type of Hallucinations: Visual: No, Auditory: No, Command: No - Level of Consciousness Level of Consciousness: Alert Orientation: Yes Intact, Yes Orientated to Time, Yes Orientated to Place, Yes Orientated to Person - Impulse Control Impulse Control: Poor - Insight and Judgement Insight and Judgement: Impaired - Group Participation Particating in Group Activities: Yes - Medication Management Medication Management Adherence: Yes Assessment - Assessment Merits Inpatient Hospitalization: For Immediate Safety, For Stabilization Inpatient DSM-V Dx: F31.13 Clinical Impression: 32 y.o. single, Citizen [place] male with a history of bipolar affective disorder, just discharged earlier this month from the [facility], who represents via the police on legal status with symptoms of destructive, grandiose, manic behaviors at his parents' house. Plan - Plan Treatment Plan: Name: MICHAEL THOMPSON Birthdate: 1985 [id number] The patient's lithium ER 900mg PO qhs has been resumed. Given his low lithium level (0.57), we will increase this to 1200mg PO qhs. We have discontinued quetiapine and started a trial of paliperidone Sustenna 234mg IM qmonthly. He remains manic and unable to assure his own safety in the community. Continue to treat on the inpatient unit. Continued Medication Management: Different Medication Medications: Current Medications Acetaminophen (Tylenol Tab*) 650 mg PO Q4H PRN PRN Reason: for pain; or Temp >101 F Al Hydrox/Mg Hydrox/Simethicone (Maalox Plus*) 30 ml PO Q4H PRN PRN Reason: INDIGESTION Chlorpromazine HCl (Thorazine Tab*) 50 mg PO ONCE PRN PRN Reason: AGITATION Last Admin: 05/23/18 20:00 Dose: 50 mg Device (Nicotine Mouth Piece*) 1 each INH .USE WITH NICOTROL PRN PRN Reason: CRAVING Last Admin: 05/28/18 11:12 Dose: 1 each Diphenhydramine HCl (Benadryl Po*) 50 mg PO ONCE PRN PRN Reason: AGITATION Last Admin: 05/23/18 20:00 Dose: 50 mg [place] Carbonate ([place] Carbonate Er Tab*) 900 mg PO 2100 NATANAEL Last Admin: 05/31/18 20:20 Dose: 900 mg Nicotine (Nicotine Inhaler*) 10 mg INH Q2H PRN PRN Reason: CRAVING Last Admin: 06/01/18 10:42 Dose: 10 mg Nicotine Polacrilex (Nicotine Gum*) 2 mg PO Q2H PRN PRN Reason: CRAVING Last Admin: 06/01/18 10:42 Dose: 2 mg - Discharge Plan Discharge Plan: Inpatient Hospitalization
[2018-06-01] MEDS: Lithium Carbonate ER (NF) 300 MG TAB.ER PO SCH (20:50)
[2018-06-01] MEDS: Mouth Piece, Nicotine* 1 EACH CARTRIDGE INH PRN (23:02)
--- NOTE | 2018-06-02 14:16 | PN ---
MHU: Group Therapy Note - Service Type Service Type: [id number] Group Psychotherapy - Cognitive Behavioral Group Therapy ( CBT):Patient attended CBT programming this morning and presented with flat affect that did not vary with discussion. Although responsive to direct prompts to respond to questions, patient did not engage in spontaneous conversation.
[2018-06-02] MEDS: Nicotine GUM* 2 MG PO PRN (19:54)
[2018-06-02] MEDS: Mouth Piece, Nicotine* 1 EACH CARTRIDGE INH PRN (19:54)
[2018-06-02] MEDS: Lithium Carbonate ER (NF) 300 MG TAB.ER PO SCH (20:24)
[2018-06-03] MEDS: Nicotine GUM* 2 MG PO PRN ×5 (05:45→19:09)
[2018-06-03] MEDS: Nicotine Inhaler* 10 MG AMP INH PRN ×5 (05:45→19:09)
--- NOTE | 2018-06-03 11:33 | PN ---
Subjective - Subjective Date of Service: 06/03/18 Service Type: [id number] Hosp care 15 min low complexity Subjective: Michael remains hyperthymic with a broad, expansive affect and overtalkativeness , although his intrusiveness and social impropriety have improved. He is tolerating his injectable antipsychotic well and also his increased dose of lithium. Staff feels like he could benefit from at least another day on the unit to improve before discharge. Ro is disappointed in this, saying that he wanted to go bead picker a new puppy today, but he takes it in stride. He denies SI or HI. Objective - Appearance Appearance: Well Developed/Nourished Dysmorphic Features: No Hygiene: Normal Grooming: Well Kept - Behavior Psychomotor Activities: Abnormal-Increased Exhibits Abnormal Movement: No - Attitude and Relatedness Attitude and Relatedness: Cooperative Eye Contact: Good - Speech Quality: Pressured Latencies: Short Quantity: Copious - Mood Patient's Decription of Mood: "Great" - Affect Observed Affect: Expansive Affect Consistent with: Euphoria - Thought Process Patient's Thought Process: Coherent Thought Content: No Passive Wish, No Suicidal Planning, No Homicidal Ideation, No Paranoid Ideation - Sensorium Experiencing Hallucinations: No, Sensorium is Clear Type of Hallucinations: Visual: No, Auditory: No, Command: No - Level of Consciousness Level of Consciousness: Alert Orientation: Yes Intact, Yes Orientated to Time, Yes Orientated to Place, Yes Orientated to Person - Impulse Control Impulse Control: Tenuous - Insight and Judgement Insight and Judgement: Fair - Group Participation Particating in Group Activities: Yes - Medication Management Medication Management Adherence: Yes Assessment - Assessment Merits Inpatient Hospitalization: Consolidate Improvements, Pending Safe DC Plan Inpatient DSM-V Dx: F31.13 Clinical Impression: 32 y.o. single, [place] male with a history of bipolar affective disorder, just discharged earlier this month from the [facility], who represents via the police on legal status with symptoms of destructive, grandiose, manic behaviors at his parents' house. Plan - Plan Treatment Plan: Name: MICHAEL THOMPSON Birthdate: 1985 [id number] The patient's lithium ER 900mg PO qhs has been resumed and increased to 1200mg PO qhs for better affective control. We have discontinued quetiapine and started a trial of paliperidone Sustenna 234mg IM qmonthly. He is improving but still slightly hypomanic. Given his rapid readmission to the [facility] last month , we will keep him an extra day and target discharge tomorrow, June 04. Continued Medication Management: Different Medication Medications: Current Medications Acetaminophen (Tylenol Tab*) 650 mg PO Q4H PRN PRN Reason: for pain; or Temp >101 F Al Hydrox/Mg Hydrox/Simethicone (Maalox Plus*) 30 ml PO Q4H PRN PRN Reason: INDIGESTION Chlorpromazine HCl (Thorazine Tab*) 50 mg PO ONCE PRN PRN Reason: AGITATION Last Admin: 05/23/18 20:00 Dose: 50 mg Device (Nicotine Mouth Piece*) 1 each INH .USE WITH NICOTROL PRN PRN Reason: CRAVING Last Admin: 06/02/18 19:54 Dose: 1 each Diphenhydramine HCl (Benadryl Po*) 50 mg PO ONCE PRN PRN Reason: AGITATION Last Admin: 05/23/18 20:00 Dose: 50 mg [place] Carbonate ([place] Carbonate Er (Nf)) 1,200 mg PO 2100 NAATNAEL Last Admin: 06/02/18 20:24 Dose: 1,200 mg Nicotine (Nicotine Inhaler*) 10 mg INH Q2H PRN PRN Reason: CRAVING Last Admin: 06/03/18 09:00 Dose: 10 mg Nicotine Polacrilex (Nicotine Gum*) 2 mg PO Q2H PRN PRN Reason: CRAVING Last Admin: 06/03/18 09:00 Dose: 2 mg - Discharge Plan Discharge Plan: Outpatient [facility]
[2018-06-03] MEDS: Lithium Carbonate ER (NF) 300 MG TAB.ER PO SCH (20:13)
[2018-06-04] MEDS: Nicotine Inhaler* 10 MG AMP INH PRN ×5 (03:15→20:13)
[2018-06-04] MEDS: Nicotine GUM* 2 MG PO PRN ×5 (03:15→20:13)
--- NOTE | 2018-06-04 10:38 | PN ---
Subjective - Subjective Date of Service: 06/04/18 Service Type: 14622 Hosp care 15 min low complexity Subjective: Ro remains grandiose and overtalkative. He is talking about starting a music career and making a "box opening channel on YouTube" that will make him an internet star. He reveals significant sensitivities about his sense of self- worth when stating "I don't want to be just another bipolar person on social security disability." Staff notes that he is still intrusive at times, roaming around the unit with no shoes and leaving his sandals in the middle of the hallway for people to walk around. He is tolerating the increase in lithium well thus far. Objective - Appearance Appearance: Well Developed/Nourished Dysmorphic Features: No Hygiene: Normal Grooming: Well Kept - Behavior Psychomotor Activities: Abnormal-Increased Exhibits Abnormal Movement: No - Attitude and Relatedness Attitude and Relatedness: Cooperative Eye Contact: Good - Speech Quality: Pressured Latencies: Short Quantity: Copious - Mood Patient's Decription of Mood: "Great" - Affect Observed Affect: Expansive Affect Consistent with: Euphoria - Thought Process Patient's Thought Process: Tangential Thought Content: No Passive Wish, No Suicidal Planning, No Homicidal Ideation, No Paranoid Ideation - Sensorium Experiencing Hallucinations: No, Sensorium is Clear Type of Hallucinations: Visual: No, Auditory: No, Command: No - Level of Consciousness Level of Consciousness: Alert Orientation: Yes Intact, Yes Orientated to Time, Yes Orientated to Place, Yes Orientated to Person - Impulse Control Impulse Control: Tenuous - Insight and Judgement Insight and Judgement: Fair - Group Participation Particating in Group Activities: Yes - Medication Management Medication Management Adherence: Yes Assessment - Assessment Merits Inpatient Hospitalization: Consolidate Improvements, Pending Safe DC Plan Inpatient DSM-V Dx: F31.13 Clinical Impression: 32 y.o. single, English-B[place]an male with a history of bipolar affective disorder, just discharged earlier this month from the [facility], who represents via the police on legal status with symptoms of destructive, grandiose, manic behaviors at his parents' house. Plan - Plan Treatment Plan: Name: MANOJ THOMPSON Birthdate: 1985 [id number] The patient's lithium ER 900mg PO qhs has been resumed and increased to 1200mg PO qhs for better affective control. We'll update his lithium level in the morning. We have discontinued quetiapine and started a trial of paliperidone Sustenna 234mg IM qmonthly. He is improving but still slightly hypomanic. Given his rapid readmission to the [facility] last month, we will keep him an extra day and target discharge tomorrow, June 05. Continued Medication Management: Different Medication Medications: Current Medications Acetaminophen (Tylenol Tab*) 650 mg PO Q4H PRN PRN Reason: for pain; or Temp >101 F Al Hydrox/Mg Hydrox/Simethicone (Maalox Plus*) 30 ml PO Q4H PRN PRN Reason: INDIGESTION Chlorpromazine HCl (Thorazine Tab*) 50 mg PO ONCE PRN PRN Reason: AGITATION Last Admin: 05/23/18 20:00 Dose: 50 mg Device (Nicotine Mouth Piece*) 1 each INH .USE WITH NICOTROL PRN PRN Reason: CRAVING Last Admin: 06/02/18 19:54 Dose: 1 each Diphenhydramine HCl (Benadryl Po*) 50 mg PO ONCE PRN PRN Reason: AGITATION Last Admin: 05/23/18 20:00 Dose: 50 mg [place] Carbonate ([place] Carbonate Er (Nf)) 1,200 mg PO 2100 NATANAEL Last Admin: 06/03/18 20:13 Dose: 1,200 mg Nicotine (Nicotine Inhaler*) 10 mg INH Q2H PRN PRN Reason: CRAVING Last Admin: 06/04/18 10:26 Dose: 10 mg Nicotine Polacrilex (Nicotine Gum*) 2 mg PO Q2H PRN PRN Reason: CRAVING Last Admin: 06/04/18 10:26 Dose: 2 mg - Discharge Plan Discharge Plan: Outpatient Follow Up Outpatient Program: [facility]
[2018-06-04] MEDS: Lithium Carbonate ER (NF) 300 MG TAB.ER PO SCH (20:10)
[2018-06-05] MEDS: Nicotine Inhaler* 10 MG AMP INH PRN ×2 (06:40→09:37)
[2018-06-05] MEDS: Nicotine GUM* 2 MG PO PRN (06:40)
[2018-06-05 07:53] VITALS: BP 116/69
--- NOTE | 2018-06-06 10:41 | DS ---
DISCHARGE SUMMARY: DATE OF ADMISSION: 05/22/18 DATE OF DISCHARGE: 06/05/18 DISCHARGE DIAGNOSES: As follows: [place] I: Bipolar disorder, type 1 most recent episode manic, severe with psychotic features. [place] II: Deferred. CONDITION AT THE TIME OF DISCHARGE: Stable. Michael has returned to relative state of euthymia. He is no longer grandiose and no longer showing evidence of hyperreligious thinking. He is future oriented indicating that he would like to soon return to work and would like to be at home with his family while his mother recovers from a recent aneurysm. He is compliant with medications including the introduction of once monthly injectable antipsychotic and he understands that once a month he needs to go to [facility] to update his dosing for this. In addition, his lithium has been increased from 900 to 1200 mg nightly due to subtherapeutic lithium levels. He understands that he will need to get fairly routine lithium levels in the community and follow up with Dr. Sonal Arenas at [facility] so that he can maintain himself on necessary medications. The patient's family are supportive of discharge and his father is arriving this evening to pick him up and provide him transportation home. He has been safe on all checks and denying suicidal or homicidal ideations. At this point, we do not believe further involuntary treatment is warranted at this high level of care. LABORATORY LABS: The patient's metabolic status was tested on 05/23/18. At that time, his hemoglobin A1c was 5.4%, triglycerides 190, cholesterol 165, LDL cholesterol 91, HDL cholesterol 35.9. MENTAL STATUS EXAM: The patient is a young, dark-skinned, male with eye glasses, wearing a long sleeve T-shirt and sweatpants who is clean and well groomed. He has no abnormal movements. Speech is measured with normal rate, tone, and volume. Mood appears to be euthymic with full affect. Thought process is linear and goal directed. Thought content is significant for his desire to be discharged from the hospital. He denies suicidal or homicidal ideations. He denies auditory or visual hallucinations. There is no further evidence of evangelical preoccupation. Insight and judgment are fair given his willingness to follow up with outpatient treatment including monthly injectable antipsychotic. Cognitively, he is awake and alert with what would appear to be an average intellect. DISCHARGE INSTRUCTIONS: A. Medications: 1. He takes paliperidone Sustenna 234 mg IM q.4 weeks. His next injection is due on 06/29/18. 2. In addition, he takes lithium extended release 1200 mg p.o. q.h.s. B. Diet is regular. C. Activities as tolerated. The patient is a smoker, but he is declining the offer of continued nicotine replacement therapy indicating his preference to continue smoking tobacco at this time. In the event that he is interested in quitting, we have provided him with the [facility] Smoker's Quitline, which is a toll free number at [phone]. There are no laboratory or diagnostic studies pending at the time of discharge. D. Followup care. The patient will require his next injection of Invega Sustenna on Friday06/29/18. We have referred him to a Medicaid Health Home. He is to present himself to the second floor of the mental health building to get a geriatric personal care aide through [facility] to help him navigate Medicaid and [facility] services. For a psychiatric followup, he is to follow up with [facility], where he has an appointment with Dr. Sonal Arenas on , 06/11/18 at 2:00 p.m. In addition, he sees his therapist, Jill Howard on 06/22/18 also at 2:00 p.m. E. Substance abuse followup is non-applicable. HOSPITAL COURSE: Part A. Reason for admission: The patient is a 32-year-old single, [place]- [place] male with a history of bipolar disorder, who was just discharged from the Behavioral Science Unit on 05/07/18, who now returns on an involuntary basis from his father's home where we had allegedly been destroying property, agitated, manic, grandiose, and hyperreligious. These behaviors continued while he was in the emergency room and it was deemed necessary to readmit him to the behavioral science unit for his own safety given his lack of ability to maintain safety in the less restricted setting. Part B: Psychiatric treatment rendered. The patient was admitted to the adult behavioral health unit where he was placed on q.15-minute checks. We checked his lithium level, which was subtherapeutic at 0.31. This gave us the indication that he was less than adherent with outpatient medications following discharge. The question of compliance with outpatient meds made us consider initiation of a long- acting injectable and the patient was agreeable with this. On 05/29/18, he received his first dose of Invega Sustenna at 234 mg IM and then on Friday06/01/18, he received a booster dose of 156 mg. Unfortunately, the patient did not improve and the check of his lithium level indicated that it was subtherapeutic at 0.57. [place] was therefore increased from 900 to 1200 mg nightly. On the morning of discharge, we have rechecked it and it was actually lower at 0.47. The patient steadfastly denied cheeking his medications or throwing away his doses and it is uncertain at this time why his lithium level would be lower given the increase in dose. Nonetheless, he is tolerating lithium well and we are encouraging him to take the 1200 mg dose and follow up with his outpatient provider soon after discharge to get on a therapeutic level of lithium. The patient's hospital course was fairly typical for him in that he had poor boundaries, elevated speech rate, hyperreligiosity, and a tendency to be intrusive. Gradually, these symptoms abated and he was able to participate more in expected milieu activities such as group psychotherapy. The patient certainly tolerated his medications well and is agreeable with outpatient follow up in the community. Given his rapid rehospitalization, we let Michael know that if he is to be rehospitalized again , we would have to consider state hospitalization, which he is not in favor of. The patient is agreeable to continuing his medications as prescribed and attending outpatient care. We do feel that he would benefit from psychosocial services and for this reason, he was referred for case management at [facility]. [id number]/[facility] #: [id number] EILEEN
== END 2018-06-05 16:15 | disposition home or self-care (01) | DRG 753 ==
LOC: ED 00:45 → BSU 17:50
PROVIDERS: ADMIT Psychiatry & Neurology Psychiatry; ATTEND Psychiatry & Neurology Psychiatry
PROC: GZHZZZZ Group Psychotherapy (ICD-10-PCS; principal; 2018-06-02)
DX: F31.2 Bipolar disorder, current episode manic severe with psychotic features (principal); Z81.8 Family history of other mental and behavioral disorders; Z91.14 Patient's other noncompliance with medication regimen; E73.9 Lactose intolerance, unspecified; F41.9 Anxiety disorder, unspecified; F17.210 Nicotine dependence, cigarettes, uncomplicated
CPT/HCPCS: 36415; 80053; 80061; 80178; 80307; 80320; 83036; 85025; 90853; 99222; 99231; 99238; 99285; A9270-GY; G0480; J1630; J2060; J2426

== ENCOUNTER 2019-11-23 01:06 | Emergency (ER) | payer OTHER ==
[2019-11-23] MEDS ORDERED: Lidocaine 2% VISCOUS* 15 ML UDC PO ONE (01:22)
[2019-11-23] MEDS ORDERED: Al Hydrox/Mg Hydrox/Simet LIQ* 30 ML UDC PO ONE (01:23)
--- NOTE | 2019-11-23 01:27 | ED ---
HPI Chest Pain - HPI Summary HPI Summary: Patient is a 34 y/o M presenting to [facility] with chief complaint of diffuse chest pain. He states that his chest pain has been present for the past day and characterizes his pain as a burning sensation. Patient reports that he has not been able to sleep as a result of the pain, noting that lying in a supine position aggravates his pain. Sitting up alleviates the pain. Chest pain radiates into his upper back. Currently, patient rates the pain a 1/10 in severity. He denies previous similar presentations of Sx and denies cardiac history. He is a current 1/4 pack a day smoker. He denies alcohol and substance usage. Patient reports minimal food consumption today, stating that he had a banana, beef jerky, and a meatball for dinner. He notes that his breath has been smelling foul. Home medications and allergies are reviewed. No fever as vitals show temp of 97.6 F. Home Medications Medication Instructions Recorded Confirmed Type [place] Carbonate ER (NF) 1,200 mg PO 2100 #120 tab.er 06/05/18 Rx - History of Current Complaint Chief Complaint: EDChestPainROMI Time Seen by Provider: 11/23/19 01:09 Hx Obtained From: Patient Onset/Duration: Started Days Ago, Still Present Timing: Lasting Days Current Severity: Mild Pain Intensity: 2 Pain Scale Used: 0-10 Numeric Chest Pain Location: Diffuse Chest Pain Radiates: Yes Chest Pain Radiates To:: Back Character: Burning Aggravating Factor(s): Position Alleviating Factor(s): Position Associated Signs and Symptoms: Positive: Chest Pain - Additional Pertinent History Primary Care Physician: SIVAKUMAR - Allergy/Home Medications Allergies/Adverse Reactions: Allergies Allergy/AdvReac Type Severity Reaction Status Date / Time No Known Allergies Allergy Verified 11/23/19 01:16 Home Medications: Home Medications [place] Carbonate ER (NF) 1,200 mg PO 2100 #120 tab.er 06/05/18 [Rx] Ranitidine TAB (NF) [Zantac TAB (NF)] 150 mg PO BID 7 Days #14 tab 11/23/19 [Rx] PMH/Surg Hx/FS Hx/Imm Hx GI History: Comment Only: Other GI Disorders - lactose intolerant Sensory History: Reports: Hx Contacts or Glasses Denies: Hx Hearing Aid Opthamlomology History: Reports: Hx Contacts or Glasses Psychiatric History: Reports: Hx Anxiety - only when feeling depressed, Hx Depression, Hx Inpatient Treatment, Hx Community Mental Health Tx, Hx Bipolar Disorder Denies: Hx Eating Disorder, Hx of Violent Episodes Against Others - Surgical History Surgery Procedure, Year, and Place: 15 years ago [facility] nasal fracture repair Hx Anesthesia Reactions: No Infectious Disease History: No Infectious Disease History: Denies: Traveled Outside the [place] in Last 30 Days - Family History Known Family History: Negative: Diabetes - Social History Alcohol Use: None Alcohol Amount: 1-2 beer per year Substance Use Type: Reports: None Smoking Status (MU): Light Every Day Tobacco Smoker Type: Cigarettes Amount Used/How Often: 1/2 PPD for last 30 days and used no other tobacco products in last 30 days Length of Time of Smoking/Using Tobacco: 9 years Have You Smoked in the Last Year: Yes Review of Systems Negative: Fever - No fever as vitals show temp of 97.6 F. Positive: Other - foul breath Positive: Chest Pain All Other Systems Reviewed And Are Negative: Yes Physical Exam - Summary Physical Exam Summary: Constitutional: Well-developed, Well-nourished, Alert. (-) Distressed Skin: Warm, Dry HENT: Normocephalic; Atraumatic Eyes: Conjunctiva normal Neck: Musculoskeletal ROM normal neck. (-) JVD, (-) Stridor, (-) Tracheal deviation Cardio: Rhythm regular, rate normal, Heart sounds normal; Intact distal pulses; The pedal pulses are 2+ and symmetric. Radial pulses are 2+ and symmetric. Pulmonary/Chest wall: Effort normal. (-) Respiratory distress, (-) Wheezes, (-) Rales Abd: Soft, (-) tenderness, (-) Distension, (-) Guarding, (-) Rebound Musculoskeletal: (-) Edema Neuro: Alert, Oriented x3 Psych: Mood and affect Normal Triage Information Reviewed: Yes Vital Signs On Initial Exam: Initial Vitals Temp Pulse Resp BP Pulse Ox 97.6 F 72 16 162/115 100 11/23/19 01:14 11/23/19 01:14 11/23/19 01:14 11/23/19 01:14 11/23/19 01:14 Vital Signs Reviewed: Yes Procedures - Sedation Patient Received Moderate/Deep Sedation with Procedure: No Diagnostics - Vital Signs Vital Signs Temp Pulse Resp BP Pulse Ox 11/23/19 01:14 97.6 F 72 16 162/115 100 - Laboratory Result Diagrams: 11/23/19 01:32 Lab Statement: Any lab studies that have been ordered have been reviewed, and results considered in the medical decision making process. - Radiology CXR Radiology Interpretation Completed By: ED Physician Summary of Radiographic Findings: No acute process, pending official report. - EKG 0108 Cardiac Rate: NL - rate of 70 BPM EKG Rhythm: Sinus Rhythm EKG Comparison: Other - no priors Summary of EKG Findings: EKG showed sinus rhythm with rate of 70 BPM, non- specific T-wave changes, no STEMI, no prior EKGs to compare. ED physician has reviewed and interpreted this EKG. Re-Evaluation - Re-Evaluation First Eval Re-Evaluation Time: 02:34 Comment: Results of workup discussed with patient, he advised to call PCP in the morning and schedule followup. He was prescribed Zantac and discharged to home. Patient is agreeable with this plan. Chest Pain Course/Dx - Course Course Of Treatment: Patient is a 34 y/o M presenting to [facility] with chief complaint of diffuse chest pain. He states that his chest pain has been present for the past day and characterizes his pain as a burning sensation. Patient reports that he has not been able to sleep as a result of the pain, noting that lying in a supine position aggravates his pain. Sitting up alleviates the pain. Chest pain radiates into his upper back. Currently, patient rates the pain a 1/ 10 in severity. He denies previous similar presentations of Sx and denies cardiac history. He is a current 1/4 pack a day smoker. He denies alcohol and substance usage. Patient reports minimal food consumption today, stating that he had a banana, beef jerky, and a meatball for dinner. He notes that his breath has been smelling foul. Physical exam is unremarkable. EKG showed sinus rhythm with rate of 70 BPM, non-specific T-wave changes, no STEMI, no prior EKGs to compare with. During ED course, patient received lidocaine 15 mL and Maalox 30 mL PO. BMP showed negative trop, only abnormal value is potassium of 3.3. CXR showed no acute process. Results of workup discussed with patient, he advised to call PCP in the morning and schedule followup. He was prescribed Zantac and discharged to home. Patient is agreeable with this plan. - Diagnoses Provider Diagnoses: GERD (gastroesophageal reflux disease) Discharge ED - Sign-Out/Discharge Documenting (check all that apply): Patient Departure - discharge - Discharge Plan Condition: Stable Disposition: HOME Prescriptions: Ranitidine TAB (NF) [Zantac TAB (NF)] 150 mg PO BID 7 Days #14 tab Patient Education Materials: Gastroesophageal Reflux Disease (ED) Referrals: [facility] [Outside] - 3 Days Additional Instructions: PLEASE RETURN TO ED FOR ANY NEW OR CONCERNING SYMPTOMS. PLEASE FOLLOWUP WITH YOUR PRIMARY CARE PHYSICIAN WITHIN THREE DAYS. - Billing Disposition and Condition Condition: STABLE Disposition: Home - Attestation Statements Document Initiated by Scribe: Yes Documenting Scribe: CASSIE ROWELL Provider For Whom [place] is Documenting (Include Credential): BARBARA DOAN MD Scribe Attestation: CASSIE Hamlin, scribed for BARBARA DOAN MD on 11/23/19 at 0432. Scribe Documentation Reviewed: Yes Provider Attestation: The documentation as recorded by the CASSIE dasilva accurately reflects the service I personally performed and the decisions made by me, BARBARA DOAN MD Status of Scribe Document: Viewed
[2019-11-23 01:56] LABS: BUN/Creatinine Ratio 8.6 (8-20); Calcium 9.3 mg/dL (8.6-10.3); EGFR African American 157.2 (>60); EGFR Non-African American 129.9 (>60); Potassium 3.3 mmol/L (3.5-5.0)
[2019-11-23 02:51] VITALS: BP 110/85
== END 2019-11-23 02:50 | disposition home or self-care (01) ==
LOC: ED 01:06
DX: K21.9 Gastro-esophageal reflux disease without esophagitis (principal); R07.9 Chest pain, unspecified; F17.210 Nicotine dependence, cigarettes, uncomplicated; F41.9 Anxiety disorder, unspecified; F32.9 Major depressive disorder, single episode, unspecified
CPT/HCPCS: 36415; 71045; 80048; 84484; 93005; 99283; A9270-GY